=== PATIENT | female | born 1935 | race Caucasian/White ===

== ENCOUNTER 2016-12-04 09:32 | Emergency (ER) | payer OTHER, BC ==
[~2016-12-04] VITALS: Ht 157.5 cm; Wt 58.4 kg
[~2016-12-04 09:32] MED LIST: ASPI325T45 PO; ATEN-171 PO
[2016-12-04 09:37] VITALS: TEMP 36.8; Ht 157.5 cm; Wt 58.4 kg
[2016-12-04] MEDS ORDERED: PROMETHAZINE HCL INJ 25 MG in SODIUM CHLORIDE 0.9% 50ML 50 ML IV STA (10:05)
[2016-12-04] MEDS ORDERED: SODIUM CHLORIDE 0.9% 500ML 500 ML IV STA (10:05)
[2016-12-04] MEDS ORDERED: ACETAMINOPHEN 500 MG TAB PO STA (10:05)
--- NOTE | 2016-12-04 10:12 | EMERGENCY ROOM VISIT NOTE ---
History Report prepared by Kaylee: Nathaniel Casarez Under the Supervision of: Dr. Isidro Calvo M.D. First contact with patient: 09:52 Chief Complaint: HEADACHE Stated Complaint: EAR ACHE, SORE THROAT, HEADACHE, PAIN UP BACK NECK History of Present Illness The patient is a 81 year old female who presents to the Emergency Room with complaints of a constant headache for about a week. The patient states that it seems that the veins on side of her head are puffing up, the back of her neck hurts, she has sore throat and an earache. She additionally states that she has some tingling in her fingers. The patient states that she has not seen a neurologist recently, and she does not take any medications. The patient denies any nausea. Source of History: patient Onset: a week ago Position: head Timing: constant Associated Symptoms: + sorethroat, + neck pain, No nausea Note: associated symptoms: Earache Review of Systems See HPI for pertinent positives & negatives. A total of 10 systems reviewed and were otherwise negative. Past Medical & Surgical Medical Problems: (1) Hypertension Family History Cancer Social History Smoking Status: Never Smoker Marital Status: Occupation Status: retired Current/Historical Medications Scheduled Atenolol/Chlorthalidone (Tenoretic 50 Mg/25 Mg), 1 TAB PO DAILY Prednisone (Prednisone Tab), 0 PO DAILY Scheduled PRN Aspirin (Aspirin), 325 MG PO UD PRN for Pain or Fever Allergies Coded Allergies: No Known Allergies (Verified , 12/04/16) Physical Exam Vital Signs Date Time Temp Pulse Resp B/P (MAP) Pulse Ox O2 Delivery O2 Flow Rate FiO2 12/04/16 12:44 74 20 179/79 99 Room Air 12/04/16 12:07 72 12/04/16 11:27 79 20 179/79 100 Room Air 12/04/16 09:37 36.8 76 18 142/72 96 Room Air Physical Exam GENERAL: Patient is a healthy-appearing well-nourished female HEAD: Normocephalic atraumatic. No evidence of meningitis or encephalitis. EYES: Ocular movements intact pupils equal and react to light OROPHARYNX mucous membranes are moist no exudates present no erythema or edema present NECK: Supple no nuchal rigidity CHEST: Good equal expansion LUNGS: Clear and equal to auscultation CARDIAC: Normal S1 and S2 ABDOMEN: Soft nontender no guarding BACK: No CVA tenderness EXTREMITIES: No pain upon palpation normal muscle strength in all groups no clubbing cyanosis or edema NEURO: Patient is following commands and answering questions appropriately. Alert and oriented x3 Cranial Nerves 2-12 grossly intact Medical Decision & Procedures ER Provider Diagnostic Interpretation: Radiology results as stated below per my review and radiologist interpretation: HEAD WITHOUT CONTRAST (CT) CT DOSE: 741.55 mGycm HISTORY: Headache Pt c/o headache TECHNIQUE: Multiaxial CT images of the head were performed without the use of intravenous contrast. Comparison: None. Findings: The paranasal sinuses and mastoid air cells are clear. The calvarium and skull base are intact. The ventricles and sulci are within normal limits. There is no mass, hematoma, midline shift, or acute infarct. Impression: No acute intracranial abnormality. The above report was generated using voice recognition software. It may contain grammatical, syntax or spelling errors. Electronically signed by: Ezequiel Mora M.D. 12/04/2016 11:14 AM Dictated Date/Time: 12/04/2016 11:07 AM CHEST ONE VIEW PORTABLE CLINICAL HISTORY: Pt c/o DONG pain. Nausea. COMPARISON STUDY: No previous studies for comparison. FINDINGS: The bones soft tissues and hemidiaphragms are normal. The cardiomediastinal silhouette is normal. The lungs are clear. The pulmonary vasculature is normal. IMPRESSION: Negative chest. Electronically signed by: Ezequiel Mora M.D. 12/04/2016 10:22 AM Dictated Date/Time: 12/04/2016 10:21 AM Laboratory Results 12/04/16 10:41 Red Blood Count 4.26, Mean Corpuscular Volume 88.5, Mean Corpuscular Hemoglobin 29.3, Mean Corpuscular Hemoglobin Concent 33.2, Mean Platelet Volume 8.0, Neutrophils (%) (Auto) 66.6, Lymphocytes (%) (Auto) 19.3, Monocytes (%) (Auto) 12.1, Eosinophils (%) (Auto) 1.5, Basophils (%) (Auto) 0.1, Neutrophils # (Auto ) 5.21, Lymphocytes # (Auto) 1.51, Monocytes # (Auto) 0.95, Eosinophils # (Auto ) 0.12, Basophils # (Auto) 0.01 12/04/16 10:41 Test 12/04/16 09:55 12/04/16 10:41 12/04/16 11:30 Urine Color YELLOW Urine Appearance TURBID (CLEAR) Urine pH 8.0 (4.5-7.5) Urine Specific [place] 1.016 (1.000-1.030) Urine Protein NEG (NEG) Urine Glucose (UA) NEG (NEG) Urine Ketones NEG (NEG) Urine Occult Blood NEG (NEG) Urine Nitrite NEG (NEG) Urine Bilirubin NEG (NEG) Urine Urobilinogen NEG (NEG) Urine Leukocyte Esterase NEG (NEG) Urine WBC (Auto) 0 /hpf (0-5) Urine RBC (Auto) 0-4 /hpf (0-4) Urine Hyaline Casts (Auto) 1-5 /lpf (0-5) Urine Epithelial Cells (Auto) >30 /lpf (0-5) Urine Bacteria (Auto) NEG (NEG) White Blood Count 7.83 K/uL (4.8-10.8) Red Blood Count 4.26 M/uL (4.2-5.4) Hemoglobin 12.5 g/dL (12.0-16.0) Hematocrit 37.7 % (37-47) Mean Corpuscular Volume 88.5 fL (80-100) Mean Corpuscular Hemoglobin 29.3 pg (25-34) Mean Corpuscular Hemoglobin Concent 33.2 g/dl (32-36) Platelet Count 392 K/uL (130-400) Mean Platelet Volume 8.0 fL (7.4-10.4) Neutrophils (%) (Auto) 66.6 % Lymphocytes (%) (Auto) 19.3 % Monocytes (%) (Auto) 12.1 % Eosinophils (%) (Auto) 1.5 % Basophils (%) (Auto) 0.1 % Neutrophils # (Auto) 5.21 K/uL (1.4-6.5) Lymphocytes # (Auto) 1.51 K/uL (1.2-3.4) Monocytes # (Auto) 0.95 K/uL (0.11-0.59) Eosinophils # (Auto) 0.12 K/uL (0-0.5) Basophils # (Auto) 0.01 K/uL (0-0.2) RDW Standard Deviation 43.0 fL (36.4-46.3) RDW Coefficient of Variation 13.3 % (11.5-14.5) Immature Granulocyte % (Auto) 0.4 % Immature Granulocyte # (Auto) 0.03 K/uL (0.00-0.02) Erythrocyte Sedimentation Rate 51 mm/hr (0-21) Anion Gap 8.0 mmol/L (3-11) Est Creatinine Clear Calc Drug Dose 51.4 ml/min Estimated GFR () 95.3 Estimated GFR (Non- 82.2 BUN/Creatinine Ratio 16.2 (10-20) Calcium Level 9.1 mg/dl (8.5-10.1) Total Bilirubin 0.4 mg/dl (0.2-1) Direct Bilirubin < 0.1 mg/dl (0-0.2) Aspartate Amino Transf (AST/SGOT) 16 U/L (15-37) Alanine Aminotransferase (ALT/SGPT) 11 U/L (12-78) Alkaline Phosphatase 61 U/L (45-117) Total Creatine Kinase 40 U/L (26-192) Creatine Kinase MB < 0.5 ng/ml (0.5-3.6) Creatine Kinase MB Ratio (0-3.0) Troponin I < 0.015 ng/ml (0-0.045) C-Reactive Protein 6.27 mg/dl (0-0.29) Total Protein 7.5 gm/dl (6.4-8.2) Albumin 3.2 gm/dl (3.4-5.0) Lipase 99 U/L (73-393) Influenza Type A (RT-PCR) Neg for Influ A (NEG) Influenza Type A Antigen Neg for Influ A (NEG) Influenza Type B Antigen Neg for Influ B (NEG) Influenza Type B (RT-PCR) Neg for Influ B (NEG) Labs reviewed by ED physician. Medications Administered Medications (Trade) Dose Ordered Sig/Yulia Route Start Time Stop Time Status Last Admin Dose Admin Sodium Chloride 500 ml @ 999 mls/hr Q31M STAT IV 12/04/16 10:05 12/04/16 10:35 DC 12/04/16 10:41 999 MLS/HR Promethazine HCl 25 mg/Sodium Chloride 51 ml @ 204 mls/hr NOW STAT IV 12/04/16 10:05 12/04/16 10:19 DC 12/04/16 10:42 204 MLS/HR Acetaminophen (Tylenol Tab) 1,000 mg NOW STAT PO 12/04/16 10:05 12/04/16 10:08 DC 12/04/16 11:27 1,000 MG Methylprednisolone Sodium Succinate (Solu-Medrol IV) 60 mg NOW STAT IV 12/04/16 11:53 12/04/16 11:54 DC 12/04/16 12:06 60 MG ECG Indication: other (headache) Rate (beats per minute): 70 Rhythm: normal sinus Findings: no acute ischemic change, no ectopy ED Course 958: Past medical records reviewed. The patient was evaluated in room C10. A complete history and physical examination was performed. 1005: Tylenol Tab 1000mg PO, Promethazine HCl 25mg/ Sodium Chloride 51ml @ 204mls/hr IV, Sodium Chloride 500 ml @ 999 mls/hr 1153: Solu-Medrol IV 60mg IV 1157: Upon reexamination the patient is feeling better. I discussed results and treatment plan with the patient. She verbalizes agreement and understanding. The patient is ready for discharge. Medical Decision Differential diagnosis: Etiologies such as migraine headache, meningitis, sinusitis, CO exposure, ICH, SAH, infection, tumor, headache, sinus thrombosis, arterial dissection, as well as others were entertained. Blood Pressure Screening: Patient was found to have an elevated blood pressure and was referred to their primary care doctor for recheck and further treatment Medication Reconciliation: I attest that I have personally reviewed the patient' s current medication list This is an 81-year-old female who presents emergency department complaining of headache. The patient is tender bilaterally to the orthodoxy area. She says elevations in her ESR as well as her CRP. Based on these findings I did give the patient a steroid shot of Solu-Medrol. Other than that she does not have an elevation in her white blood count cell count and a CAT scan of her head is normal. She has no evidence of meningitis encephalitis on examination. I will trial the patient on a by mouth steroid taper and stressed the need for follow- up with neurology. Patient was in agreement with the treatment plan. Impression Primary Impression: Headache Scribe Attestation The scribe's documentation has been prepared under my direction and personally reviewed by me in its entirety. I confirm that the note above accurately reflects all work, treatment, procedures, and medical decision making performed by me. Departure Information Dispostion Home / Self-Care Prescriptions Prednisone (Prednisone Tab) 20 Mg Tab 0 PO DAILY, #7 TAB 2 TABS DAILY FOR 2 DAYS, THEN 1 TAB DAILY FOR 2 DAYS, THEN 1/2 TAB DAILY FOR 2 DAYS. Prov: Isidro Calvo MD 12/04/16 Referrals No Doctor, Assigned (PCP) Forms HOME CARE DOCUMENTATION FORM, IMPORTANT VISIT INFORMATION, School Instructions, Work Instructions Patient Instructions Headache Pain, Hypertension Dc, My [facility] Additional Instructions Follow up with Dr Rodrigues's office You were found to have an elevated blood pressure today (>120 sytolic or >90 diastolic). Per medicare guidelines, you need to follow up with this blood pressure screening with your Primary Care Physician (PCP). For a new PCP call [phone]. You have been examined and treated today on an emergency basis only. This is not a substitute for, or an effort to provide, complete comprehensive medical care. It is impossible to recognize and treat all injuries or illnesses in a single emergency department visit. It is therefore important that you follow up closely with Dr Sam. Call as soon as possible for an appointment. Thank you for your time and consideration. I look forward to speaking with you again soon. Please don't hesitate to call us if you have any questions. Problem Qualifiers Primary Impression: Headache Headache type: unspecified Headache chronicity pattern: unspecified pattern Intractability: not intractable Qualified Codes: R51 - Headache
--- NOTE | 2016-12-04 10:23 | DIAGNOSTIC IMAGING REPORT ---
CHEST ONE VIEW PORTABLE CLINICAL HISTORY: Pt c/o DONG pain. Nausea. COMPARISON STUDY: No previous studies for comparison. FINDINGS: The bones soft tissues and hemidiaphragms are normal. The cardiomediastinal silhouette is normal. The lungs are clear. The pulmonary vasculature is normal. IMPRESSION: Negative chest. Electronically signed by: Ezequiel Mora M.D. 12/04/2016 10:22 AM Dictated Date/Time: 12/04/2016 10:21 AM
[2016-12-04 11:00] LABS: BASO % 0.1 %; BASO ABS # 0.01 K/uL (0-0.2); COMPLETE YES; EOS % 1.5 %; HEMATOCRIT 37.7 % (37-47); IG% 0.4 %; LYMPH % 19.3 %; LYMPH ABS # 1.51 K/uL (1.2-3.4); MEAN CELL VOLUME 88.5 fL (80-100); MEAN CORPUSCULAR HEMOGLOBIN 29.3 pg (25-34); MEAN CORPUSCULAR HGB CONC 33.2 g/dl (32-36); MONO % 12.1 %; NEUT % 66.6 %; PLATELET COUNT 392 K/uL (130-400); RED BLOOD COUNT 4.26 M/uL (4.2-5.4); WHITE BLOOD COUNT 7.83 K/uL (4.8-10.8)
--- NOTE | 2016-12-04 11:15 | DIAGNOSTIC IMAGING REPORT ---
HEAD WITHOUT CONTRAST (CT) CT DOSE: 741.55 mGycm HISTORY: Headache Pt c/o headache TECHNIQUE: Multiaxial CT images of the head were performed without the use of intravenous contrast. Comparison: None. Findings: The paranasal sinuses and mastoid air cells are clear. The calvarium and skull base are intact. The ventricles and sulci are within normal limits. There is no mass, hematoma, midline shift, or acute infarct. Impression: No acute intracranial abnormality. The above report was generated using voice recognition software. It may contain grammatical, syntax or spelling errors. Electronically signed by: Ezequiel Mora M.D. 12/04/2016 11:14 AM Dictated Date/Time: 12/04/2016 11:07 AM
[2016-12-04 11:19] LABS: ALT/SGPT 11 U/L (12-78); BLOOD UREA NITROGEN 11 mg/dl (7-18); BUN/CREATININE RATIO 16.2 (10-20); C-REACTIVE PROTEIN 6.27 mg/dl (0-0.29); CALCIUM 9.1 mg/dl (8.5-10.1); CARBON DIOXIDE 28 mmol/L (21-32); CHLORIDE 97 mmol/L (98-107); CREATININE 0.69 mg/dl (0.60-1.20); GLUCOSE 96 mg/dl (70-99); POTASSIUM 3.7 mmol/L (3.5-5.1); SODIUM 133 mmol/L (136-145)
[2016-12-04 11:22] LABS: ALKALINE PHOSPHATASE 61 U/L (45-117); AST/SGOT 16 U/L (15-37)
[2016-12-04] MEDS ORDERED: METHYLPREDNISOLONE 125 MG VIAL IV STA (11:53)
[2016-12-04] MEDS ORDERED: PRED20TA2 PO (11:58)
[2016-12-04 12:34] LABS: URINE APPEARANCE TURBID (CLEAR); URINE BILIRUBIN NEG (NEG); URINE COLOR YELLOW; URINE EPITHELIAL CELL AUTO >30 /lpf (0-5); URINE NITRITE NEG (NEG); URINE SPECIFIC GRAVITY 1.016 (1.000-1.030); UROBILINOGEN NEG (NEG)
[2016-12-04 12:36] LABS: MANUAL MICROSCOPIC REQUIRED? NO; REVIEW REQ? NO
[2016-12-04 12:44] VITALS: BP 179/79; PULSE 74; O2SAT 99
[2016-12-04 14:24] LABS: INFLUENZA A PCR Neg for Influ A (NEG); INFLUENZA B PCR Neg for Influ B (NEG)
[2016-12-12] MEDS ORDERED: TURM1CAP PO (08:51)
[2016-12-12] MEDS ORDERED: ASPI-232 PO (08:51)
[2016-12-12] MEDS ORDERED: ZNTT/150 PO (08:51)
[2016-12-12] MEDS ORDERED: PRED20TA2 PO (08:51)
[2016-12-12] MEDS ORDERED: ACET1TAB84 PO (08:51)
[2016-12-12] MEDS ORDERED: CYAN10004 PO (08:51)
[2016-12-12] MEDS ORDERED: ACET-1256 PO (08:51)
== END 2016-12-04 13:05 | disposition home or self-care (01) ==
LOC: C.EDB 09:34 → C.EDC 13:05
DX: R51 Headache (principal); I10 Essential (primary) hypertension; Z79.899 Other long term (current) drug therapy; Z80.9 Family history of malignant neoplasm, unspecified

== ENCOUNTER → 2016-12-15 | Outpatient (CLI) | payer OTHER, BC ==
[~2016-12-15] MED LIST changes: +ACET-1256 PO; +ACET1TAB84 PO; +ASPI-232 PO; -ASPI325T45 PO; +CYAN10004 PO; +HYDR-5688 PO; +PRED20TA2 PO; +TURM1CAP PO; +ZNTT/150 PO
== END | disposition home or self-care (01) ==
LOC: C.LAB1850 08:50
PROVIDERS: ATTEND Internal Medicine Rheumatology
DX: R70.0 Elevated erythrocyte sedimentation rate (principal)

== ENCOUNTER 2016-12-16 07:22 | Day surgery (SDC) | payer OTHER, BC ==
[2016-12-12 08:55] VITALS: BMI 23.0
[~2016-12-16] VITALS: Ht 157.5 cm; Wt 56.8 kg
[~2016-12-16 07:22] MED LIST changes: -HYDR-5688 PO; +LACTATED RINGER'S 1000ML 1,000 ML IV SCH
[2016-12-16 07:50] VITALS: BP 174/85; PULSE 61; TEMP 36.9; O2SAT 99; Ht 157.5 cm; Wt 56.8 kg
[2016-12-16] MEDS ORDERED: FLUMAZENIL 0.1 MG/1 ML 10 ML VIAL IV PRN (09:00)
[2016-12-16] MEDS ORDERED: HYDROmorphone INJ 2 MG/ML SYR/VIAL IV PRN (09:00)
[2016-12-16] MEDS ORDERED: ATROPINE SULFATE 0.1 MG/ML 5ML SYR IV PRN (09:00)
[2016-12-16] MEDS ORDERED: LABETALOL HCL IV 5 MG/ML 20ML IV PRN (09:00)
[2016-12-16] MEDS ORDERED: ONDANSETRON INJ 2 MG/ML 2 ML VIAL IV PRN ×2 (09:00→11:00)
[2016-12-16] MEDS ORDERED: NALOXONE HCL 0.4 MG/1 ML VIAL/CARP IV PRN (09:00)
[2016-12-16] MEDS ORDERED: EpHEDrine SULFATE INJ 50 MG/ML AMP IV PRN (09:00)
[2016-12-16] MEDS ORDERED: MEPERIDINE HCL 25 MG/ML CARP IV PRN (09:00)
[2016-12-16] MEDS ORDERED: FENTANYL CITRATE INJ 50 MCG/1 ML 2 ML VIAL IV PRN (09:00)
[2016-12-16] MEDS ORDERED: PHENYLEPHRINE 100MCG/ML 5ML SYR IV PRN (09:00)
[2016-12-16] MEDS ORDERED: LIDOCAINE/EPINEPHRINE 1% 20 ML VIAL ONE (09:53)
[2016-12-16] MEDS ORDERED: BACITRACIN OINT 15 GM TUBE ONE (09:53)
[2016-12-16] MEDS ORDERED: LIDOCAINE HCL 2% 2 ML VIAL (20MG/ML) ONE (09:55)
[2016-12-16] MEDS ORDERED: MIDAZOLAM HCL 1 MG/ML 2ML VIAL ONE (09:55)
[2016-12-16] MEDS ORDERED: FENTANYL CITRATE INJ 50 MCG/1 ML 2 ML VIAL ONE (09:55)
[2016-12-16] MEDS ORDERED: PROPOFOL IV EMULSION 10 MG/ML 20 ML VIAL IV ONE (09:55)
--- NOTE | 2016-12-16 09:57 | History & Physical Bridge Note ---
H&P Re-Evaluation Bridge Note: I have examined the patient, reviewed the History & Physical and in the interval since the performance of the History & Physical I have noted the following changes of clinical significance: No changes noted pt marked all questions answered
[2016-12-16] MEDS ORDERED: HYDR-5688 PO (10:34)
--- NOTE | 2016-12-16 10:36 | Discharge Instructions ---
Discharge Instructions Date of Service Dec 16, 2016. Visit Reason for Visit: Headache Discharge Discharge Diagnosis / Problem: temporal artery biopsies Discharge Goals Goal(s): Improve disease control Activity Recommendations Activity Limitations: as noted below Shower/Bathe: tomorrow Driving or Machine Use: if not mtaking [place] Anesthesia . Post Anesthesia Instructions: If you have had General Anesthesia or IV Sedation: * Do not drive today. * Resume driving when surgeon permits. * Do not make important decisions or sign legal documents today. * Call surgeon for: 1. Temperature elevations greater than 101 degrees F. 2. Uncontrollable pain. 3. Excessive bleeding. 4. Persistent nausea and vomiting. 5. Medication intolerance (nausea, vomiting or rash). * For nausea and vomiting use only clear liquids such as: tea, soda, bouillon until nausea subsides, then gradually increase diet as tolerated. * If you have any concerns or questions, call your surgeon's office. If physician is unavailable and it is an emergency, call 911 or go to the nearest emergency room. . Instructions / Follow-Up Instructions / Follow-Up Dr. Calderon in 1 week, call [phone] if you need to schedule or have any questions Diet Recommendations Recommended Home Diet: no limitations Pending Studies Studies pending at discharge: yes List of pending studies: pathology Medical Emergencies . Who to Call and When: Medical Emergencies: If at any time you feel your situation is an emergency, please call 911 immediately. . Non-Emergent Contact Non-Emergency issues call your: Surgeon Call Non-Emergent contact if: you have a fever, temperature is above 101.5, your pain is not controlled, you have any medication questions . . "Provider Documentation" section prepared by Kwaku Meade. . [place] Drug Monitoring Program Search Results: no issues identified
[2016-12-16] MEDS ORDERED: LACTATED RINGER'S 1000ML 1,000 ML IV SCH (10:58)
[2016-12-16] MEDS ORDERED: MoRPHine SULFATE 2 MG/ML CARP IV PRN (11:00)
[2016-12-16] MEDS ORDERED: HYDROCODONE/ACETAMOPHEN 5/325MG TAB PO PRN (11:00)
--- NOTE | 2016-12-16 11:13 | [facility] Operative Report ---
Operative Report Operative Date Dec 16, 2016. Pre-Operative Diagnosis rule out temporal arteritis Post-Operative Diagnosis rule out temporal arteritis Procedure(s) Performed Bilateral Temporal Artery Biopsy Surgeon Dr. Jhon Calderon Hairspring Vibrator Surgeon(s) None Estimated Blood Loss 1ML Findings as preop Specimens A. Right Temporal Artery B. Left Temporal Artery Anesthesia 1%xyl(4cc0 and iv sedation Indications r/o temp arteritis Description of Procedure or summary dictated confirmation number [id number] I attest to the content of the Intraoperative Record and any orders documented therein. Any exceptions are noted below.
--- NOTE | 2016-12-16 11:37 | Anesthesiology Progress Note ---
Anesthesia Post Op Note Date & Time Dec 16, 2016 at 11:37 Vital Signs Pain Intensity: 0 Vital Signs Past 12 Hours Date Time Temp Pulse Resp B/P (MAP) Pulse Ox O2 Delivery O2 Flow Rate FiO2 12/16/16 11:29 36.6 62 20 149/59 95 Room Air 12/16/16 11:20 62 20 155/68 95 Room Air 12/16/16 11:10 57 16 152/66 95 Room Air 12/16/16 11:01 36 66 18 161/76 95 Room Air 12/16/16 07:50 36.9 61 18 174/85 (114) 99 Room Air Notes Mental Status: alert / awake / arousable, participated in evaluation Pt Amnestic to Procedure: Yes Nausea / Vomiting: adequately controlled Pain: adequately controlled Airway Patency, RR, SpO2: stable & adequate BP & HR: stable & adequate Hydration State: stable & adequate Anesthetic Complications: no major complications apparent
--- NOTE | 2016-12-16 11:39 | OPERATIVE REPORT ---
DATE OF OPERATION: 12/16/2016 PREOPERATIVE DIAGNOSIS: Rule out temporal arteritis. POSTOPERATIVE DIAGNOSIS: Same. PROCEDURE: Bilateral temporal artery biopsy. SURGEON: Dr. Calderon. BEADING MACHINE OPERATOR: Katy. OPERATION AND FINDINGS: SUMMARY: The patient was brought into the operating room theater. The right anterior to the ear was prepped with Betadine solution and properly draped after we had palpated the artery and marked it with a pen. Some IV sedation was given. I used 1% Xylocaine without epinephrine, a total of about 1.5-2 mL to infiltrate the skin and subcutaneous tissue. An incision was made approximately 3/4 of an inch long, parallel anterior to the area, deepened through subcutaneous tissue until we were able to identify the artery which dissected out proximally and distally for about a cm or so using a hemostat to divide the artery easily distally. We took a segment out of approximately 1 cm. I marked it as the right temporal artery biopsy. The resected area of the artery was then oversewn over a 4-0 Monocryl suture ligature on both ends. The area appeared satisfactory for hemostasis, closed with interrupted 4-0 Monocryl. Steri-Strips will be applied after we completed the left side. At this point we reprepped and draped the patient, turned her head to the right. Again, similarly placed a prep anterior to the left ear. We placed a cotton swab on the ear just as we had done on the other side, some local anesthetic was used to infiltrate anteriorly. An incision was made approximately 3/4 of an inch, deepened through subcutaneous tissue, again experiencing and identifying a segment of the artery which we ligated proximally and distally with 4-0 Vicryl suture after resecting approximately a centimeter of the artery and sent it separately. The wound was then 4-0 Monocryl. Steri-Strips were applied over both ends. Dressing was applied. The procedure was tolerated well by the patient. Estimated blood loss approximately 1 mL. The patient was taken to recovery room in good condition. I attest to the content of the Intraoperative Record and any orders documented therein. Any exception s are noted below.
[2016-12-16 11:40] VITALS: BP 166/70; PULSE 60; TEMP 36.7; O2SAT 96
[2016-12-16 12:15] VITALS: BP 161/71; PULSE 64; TEMP 36.7; O2SAT 98
== END 2016-12-16 12:45 | disposition home or self-care (01) ==
LOC: C.ACU 07:22
PROVIDERS: ATTEND Surgery
DX: M31.6 Other giant cell arteritis (principal); I35.0 Nonrheumatic aortic (valve) stenosis; I10 Essential (primary) hypertension; E78.5 Hyperlipidemia, unspecified; K21.9 Gastro-esophageal reflux disease without esophagitis; L90.0 Lichen sclerosus et atrophicus; Z79.899 Other long term (current) drug therapy; Z79.82 Long term (current) use of aspirin

== ENCOUNTER → 2017-01-20 | Outpatient (CLI) | payer OTHER, BC ==
[~2017-01-20] MED LIST changes: -ACET-1256 PO; -ACET1TAB84 PO; +HYDR-5688 PO; -LACTATED RINGER'S 1000ML 1,000 ML IV SCH; -TURM1CAP PO
== END | disposition home or self-care (01) ==
LOC: C.MAMM 13:12
PROVIDERS: ATTEND Internal Medicine Rheumatology
DX: M31.6 Other giant cell arteritis (principal); T38.0X1A Poisoning by glucocorticoids and synthetic analogues, accidental (unintentional), initial encounter; Z79.52 Long term (current) use of systemic steroids; M81.0 Age-related osteoporosis without current pathological fracture

== ENCOUNTER → 2017-02-02 | Outpatient (CLI) | payer OTHER, BC | END | disposition home or self-care (01) | LOC: C.LAB1850 09:46 | PROVIDERS: ATTEND Internal Medicine Rheumatology | DX: Z51.81 Encounter for therapeutic drug level monitoring (principal); M31.6 Other giant cell arteritis; T38.0X1A Poisoning by glucocorticoids and synthetic analogues, accidental (unintentional), initial encounter; E55.9 Vitamin D deficiency, unspecified; Z79.52 Long term (current) use of systemic steroids ==

== ENCOUNTER → 2017-03-09 | Outpatient (CLI) | payer OTHER, BC | LOC: C.LAB1850 13:24 | PROVIDERS: ATTEND Internal Medicine Rheumatology | DX: M31.6 Other giant cell arteritis (principal); M81.8 Other osteoporosis without current pathological fracture; S32.9XXA Fracture of unspecified parts of lumbosacral spine and pelvis, initial encounter for closed fracture; X58.XXXA Exposure to other specified factors, initial encounter; Z79.52 Long term (current) use of systemic steroids ==

== ENCOUNTER → 2017-04-13 | Outpatient (CLI) | payer OTHER, BC | END | disposition home or self-care (01) | LOC: C.LAB1850 09:48 | PROVIDERS: ATTEND Internal Medicine Rheumatology | DX: E55.9 Vitamin D deficiency, unspecified (principal) ==

== ENCOUNTER → 2017-05-11 | Outpatient (CLI) | payer OTHER, BC | END | disposition home or self-care (01) | LOC: C.LAB1850 09:13 | PROVIDERS: ATTEND Internal Medicine Rheumatology | DX: M81.8 Other osteoporosis without current pathological fracture (principal); Z79.52 Long term (current) use of systemic steroids; M31.6 Other giant cell arteritis; E55.9 Vitamin D deficiency, unspecified ==

== ENCOUNTER → 2017-06-29 | Outpatient (CLI) | payer OTHER, BC ==
[~2017-06-29] MED LIST changes: -HYDR-5688 PO
== END | disposition home or self-care (01) ==
LOC: C.LAB1850 10:30
PROVIDERS: ATTEND Internal Medicine Rheumatology
DX: M81.8 Other osteoporosis without current pathological fracture (principal); M31.6 Other giant cell arteritis; Z79.52 Long term (current) use of systemic steroids

== ENCOUNTER → 2017-08-10 | Outpatient (CLI) | payer OTHER, BC ==
[~2017-08-10] MED LIST changes: +RANI150T85 PO; -ZNTT/150 PO
== END | disposition home or self-care (01) ==
LOC: C.LAB1850 09:19
PROVIDERS: ATTEND Internal Medicine Pulmonary Disease
DX: M81.8 Other osteoporosis without current pathological fracture (principal); Z79.52 Long term (current) use of systemic steroids; M31.6 Other giant cell arteritis

== ENCOUNTER → 2017-09-08 | Outpatient (CLI) | payer OTHER, BC ==
[2017-09-08 12:27] LABS: BASO % 0.2 %; BASO ABS # 0.02 K/uL (0-0.2); EOS % 0.8 %; EOS ABS # 0.08 K/uL (0-0.5); HEMATOCRIT 43.8 % (37-47); HEMOGLOBIN 14.9 g/dL (12.0-16.0); IG# 0.02 K/uL (0.00-0.02); LYMPH % 14.6 %; LYMPH ABS # 1.49 K/uL (1.2-3.4); MEAN CELL VOLUME 94.6 fL (80-100); MEAN CORPUSCULAR HEMOGLOBIN 32.2 pg (25-34); MEAN PLATELET VOLUME 9.2 fL (7.4-10.4); MONO % 4.3 %; MONO ABS # 0.44 K/uL (0.11-0.59); NEUT % 79.9 %; NEUT ABS # 8.17 K/uL (1.4-6.5); PLATELET COUNT 298 K/uL (130-400); RED CELL DISTRIBUTION WIDTH CV 13.3 % (11.5-14.5); RED CELL DISTRIBUTION WIDTH SD 45.7 fL (36.4-46.3); WHITE BLOOD COUNT 10.22 K/uL (4.8-10.8)
[2017-09-08 13:24] LABS: ALBUMIN 3.8 gm/dl (3.4-5.0); ALT/SGPT 23 U/L (12-78); AST/SGOT 23 U/L (15-37); BLOOD UREA NITROGEN 16 mg/dl (7-18); CALCIUM 9.5 mg/dl (8.5-10.1); CARBON DIOXIDE 30 mmol/L (21-32); CREATININE 1.26 mg/dl (0.60-1.20); GLUCOSE 83 mg/dl (70-99); POTASSIUM 3.4 mmol/L (3.5-5.1); SODIUM 137 mmol/L (136-145)
[2017-09-08 13:35] LABS: ALKALINE PHOSPHATASE 47 U/L (45-117); TOTAL PROTEIN 7.5 gm/dl (6.4-8.2)
== END | disposition home or self-care (01) ==
LOC: C.LAB1850 09:55
PROVIDERS: ATTEND Internal Medicine Rheumatology
DX: I10 Essential (primary) hypertension (principal); I35.0 Nonrheumatic aortic (valve) stenosis; M80.00XA Age-related osteoporosis with current pathological fracture, unspecified site, initial encounter for fracture; X58.XXXA Exposure to other specified factors, initial encounter; Z79.52 Long term (current) use of systemic steroids; M31.6 Other giant cell arteritis

== ENCOUNTER → 2017-10-13 | Outpatient (CLI) | payer OTHER, BC | END | disposition home or self-care (01) | LOC: C.LAB1850 10:13 | PROVIDERS: ATTEND Internal Medicine Rheumatology | DX: Z51.81 Encounter for therapeutic drug level monitoring (principal); E55.9 Vitamin D deficiency, unspecified; M81.8 Other osteoporosis without current pathological fracture; Z79.52 Long term (current) use of systemic steroids; M31.6 Other giant cell arteritis ==

== ENCOUNTER → 2017-12-10 | Outpatient (CLI) | payer OTHER, BC | END | disposition home or self-care (01) | LOC: C.LAB1850 09:45 | PROVIDERS: ATTEND Internal Medicine Rheumatology | DX: N20.0 Calculus of kidney (principal); M80.00XA Age-related osteoporosis with current pathological fracture, unspecified site, initial encounter for fracture; M31.6 Other giant cell arteritis; M25.511 Pain in right shoulder ==

== ENCOUNTER 2021-05-26 07:56 | Observation (INO) ==
[2021-05-26] MEDS ORDERED: ASPIRIN CHEW 324 MG PO STA (08:20)
[2021-05-26 08:44] LABS: Basophils # (auto) 0.02 K/uL (0-0.2); Basophils % (auto) 0.4 %; Eosinophils # (auto) 0.12 K/uL (0-0.5); Eosinophils % (auto) 2.2 %; Hematocrit (blood only) 42.7 % (37-47); Hemoglobin 14.8 g/dL (12.0-16.0); Immature Granulocytes # (auto) 0.01 K/uL (0.00-0.02); Immature Granulocytes % (auto) 0.2 %; Lymphocytes # (auto) 0.92 K/uL (1.2-3.4); Lymphocytes % (auto) 16.5 %; Mean Corpuscular Hemoglobin 31.3 pg (25-34); Mean Corpuscular Hgb Conc 34.7 g/dL (32-36); Mean Corpuscular Volume 90.3 fL (80-100); Mean Platelet Volume 9.2 fL (7.4-10.4); Monocytes # (auto) 0.76 K/uL (0.11-0.59); Monocytes % (auto) 13.6 %; Neutrophils # (auto) 3.74 K/uL (1.4-6.5); Neutrophils % (auto) 67.1 %; Platelet Count 172 K/uL (130-400); RDW Coefficient of Variation 12.9 % (11.5-14.5); RDW Standard Deviation 42.7 fL (36.4-46.3); Red Blood Count 4.73 M/uL (4.2-5.4); White Blood Count 5.57 K/uL (4.8-10.8)
--- NOTE | 2021-05-26 08:52 | XRay Report ---
SINGLE VIEW CHEST CLINICAL HISTORY: Atypical chest pain. FINDINGS: An AP, portable, upright chest radiograph is compared to study dated 12/04/2016. The cardiom ediastinal silhouette is unremarkable noting atherosclerotic calcification of the thoracic aorta. The re is evidence of previous cardiac valve surgery. There is mild bibasilar scarring/atelectasis. The l ungs and pleural spaces are otherwise clear. No pneumothorax is seen. The skeletal structures are ost eopenic. The bony thorax is grossly intact. Advanced arthritic change is seen in the right shoulder. IMPRESSION: No active disease in the chest. ACT 112: Negative or not required by law. Electronically signed by: Wilfredo Livingston M.D. 05/26/2021 8:51 AM
[2021-05-26 08:54] LABS: Partial Thromboplastin Ratio 1.2; Prothrombin Time 10.4 Seconds (9.0-12.0)
[2021-05-26 08:58] LABS: Alanine Aminotransferase 14 (12-78); Albumin Level 3.4 gm/dl (3.4-5.0); Aspartate Aminotransferase 23 U/L (15-37); BUN Creatinine Ratio 19.3 (10-20); Blood Urea Nitrogen 15 mg/dl (7-18); Calcium 9.1 mg/dl (8.5-10.1); Carbon Dioxide 30 mmol/L (21-32); Chloride 88 mmol/L (98-107); Creatinine Clr Calc Pharmacy 41.7 ml/min; Est GFR (African American) 80.3 ml/min; Est GFR (Non-African American) 69.3 ml/min; Glucose 104 mg/dl (70-99); Lipase 75 U/L (73-393); Potassium 3.2 mmol/L (3.5-5.1); Sodium 126 mmol/L (136-145)
--- NOTE | 2021-05-26 08:59 | Emergency Department Note ---
Impression & Plan Chest pain, Acute hyponatremia ED Provider Note NAME: LISETTE PERRY AGE: 86 SEX: F : 1935 ARRIVES VIA: Walk-In INFORMANT: Patient, ED PROVIDER(S): Mj Blandon DO CHIEF COMPLAINT: Chest pain HPI: The patient is an 86-year-old female who presented to the emergency department for an evaluation of chest pain. The patient describes anterior chest pain that goes to her back as well as her shoulders. She does have a hist ory of aortic valve replacement in the past. She states that this was only 3 years ago. She does not remember having a heart catheterization at that time but states that she does not think she has any cardiac stents. She denies having any abdominal pain. She states the pain goes into her left arm but then she also feels tightness in her left leg. She denies having any headache or neck pain. She states that the symptoms have been ongoing for the last few days. The patient did not see her primary care physician for the symptoms. The patient has not had any recent trauma. She denies having any fever or cough. She has been vaccinated against COVID-19. ROS: See above HPI for pertinent positives & negatives. A total of 10 systems reviewed and were otherwise negative. PAST MEDICAL HISTORY: See Below PAST SURGICAL HISTORY: See Below FAMILY HISTORY: See Below SOCIAL HISTORY: See Below HOME MEDICATIONS: See Below ALLERGIES: See Below VITALS: See Below PHYSICAL EXAMINATION: GENERAL: Patient is awake alert in no acute distress patient is resting comfortably and showing no signs of anxiety EYES: The conjunctivae are clear. The pupils are round and reactive. EARS, NOSE, MOUTH AND THROAT: The nose is without any evidence of any deformity. NECK: The neck is nontender and supple. RESPIRATORY: Normal respiratory effort is noted there is no evidence of wheezing rhonchi or rales CARDIOVASCULAR: Regular rate and rhythm noted there no murmurs rubs or gallops normal S1 normal S2. GASTROINTESTINAL: The abdomen is soft. Abdomen is nontender. MUSCULOSKELETAL/EXTREMITIES: There is no evidence of gross deformity full range of motion is noted in the hips and shoulders. SKIN: There is no significant pedal edema. Pulses are symmetric in both wrist. NEUROLOGIC: Patient is awake alert and oriented x3. MEDICAL DECISION MAKING: The patient is an 86-year-old female who presented to emergency department for an evaluation of chest pain. The patient describes anterior chest pain with radiation. I discussed the patient's laboratory and radiographic studies with her. I also discussed the limitations of the emergency department work-up for chest pain with her. Ultimately I did discuss her case with the on-call [facility] hospitalist group. They have agreed to evaluate the patient in the emergency department for further management and disposition. Triage Nursing notes reviewed. Prior medical records reviewed Vital Signs: reviewed and remarkable for elevated blood pressure. Differential diagnosis: Cardiac ischemia, aortic dissection, pulmonary embolism, pneumothorax, pneumonia, pericarditis, myocarditis, esophageal rupture, GERD, cholecystitis, pancreatitis, musculoskeletal, as well as other pathologies. ER treatment provided: See below Diagnostics interpreted by me: ECG: EKG was obtained in the emergency department. My interpretation is normal sinus rhythm at 84 bpm. There was no ectopy. There was no acute ST segment abnormalities noted. LVH was noted by voltage criteria. This was compared to a tracing from December 042016. No changes were noted. Cardiac Monitoring: An order was placed for continuous cardiac monitoring. The monitor shows a rate of 72 bpm with sinus rhythm. Laboratory studies: As stated above and show below. Imaging studies: See below Consultation(s): I discussed this case with Farzad who is on for the [facility] hospitalist group. They will evaluate the patient in the emergency department. Past Med/Surg History Medical History GERD (gastroesophageal reflux disease) Hiatal hernia Hx of fracture of pelvis 1 YR AGO Hypertension Personal history of kidney stones Rotator cuff tear right (november 2017) TA (temporal arteritis) Surgical History H/O aortic valve replacement [place] 23 millimeter, December 22, 2018. [facility]. TAVR History of cataract surgery LEFT Hx of colonoscopy Hx of lithotripsy Family History Family/Other Coronary heart disease Father Hypertension Father Cancer Brother Cancer Social History Smoking Status: Never smoker Second Hand Exposure: No; Hx Alcohol Use: No Hx Substance Use: No Preferred Language: Sami Communication Ability: Effective Director Of Fundraising Required: No Beliefs That Will Affect Care: None Current Living Situation: Alone Feels Safe at Home: Yes Assistive Devices: Glasses Allergies Allergies Allergy/AdvReac Type Severity Reaction Status Date / Time No Known Drug Allergies Allergy Verified 05/26/21 08:59 JEWELRY AdvReac Unknown "BREAK Uncoded 05/26/21 08:59 OUT" - SEE NOTE BELOW Home Meds Home Medications Medication Instructions Recorded Confirmed aspirin 81 mg chewable tablet 81 mg PO QAM 11/08/18 05/26/21 famotidine 20 mg tablet 20 mg PO QAM 07/19/20 05/26/21 chlorthalidone 25 mg tablet 25 mg PO QAM 05/26/21 05/26/21 Previous Rx's Medication Instructions Recorded amoxicillin 500 mg tablet 500 mg PO .COMPLEX #4 tab 08/01/19 Results & Data (ED) Vital Signs Vital Signs - 24 hr 05/26/21 07:59 05/26/21 08:20 05/26/21 09:00 Temperature 37 C Temperature Source Temporal Artery Scan Pulse Rate 91 H 70 Pulse Rate [Radial] 85 73 Pulse Rate from SpO2 Sensor Pulse Rhythm Regular Pulse Rhythm [Radial] Regular Regular Pulse Strength [Radial] Normal Normal Respiratory Rate 18 20 22 Respiratory Effort / Characteristics Non-Labored Non-Labored Non-Labored Respiratory Depth Normal Normal Normal Respiratory Pattern Regular Regular Blood Pressure 132/82 Blood Pressure [Left Arm] 180/81 H 139/65 Blood Pressure Mean 98 Blood Pressure Mean [Left Arm] 114 89 Blood Pressure Position [Left Arm] Lying Lying Pulse Oximetry 97 98 98 Oxygen Delivery Method Room Air Room Air Room Air Sepsis Recent Fever Within 48 Hours No Sepsis New/Unexplained Change in Mental Status No Sepsis Action Taken by Nursing No Action Required 05/26/21 09:30 05/26/21 10:30 05/26/21 11:00 Temperature Temperature Source Pulse Rate 72 Pulse Rate [Radial] 70 69 Pulse Rate from SpO2 Sensor 73 Pulse Rhythm Pulse Rhythm [Radial] Regular Pulse Strength [Radial] Normal Respiratory Rate 18 17 20 Respiratory Effort / Characteristics Non-Labored Respiratory Depth Normal Respiratory Pattern Blood Pressure 188/96 H Blood Pressure [Left Arm] 170/81 H 172/73 H Blood Pressure Mean 126 Blood Pressure Mean [Left Arm] 110 106 Blood Pressure Position [Left Arm] Lying Pulse Oximetry 99 97 97 Oxygen Delivery Method Room Air Room Air Room Air Sepsis Recent Fever Within 48 Hours Sepsis New/Unexplained Change in Mental Status Sepsis Action Taken by Nursing 05/26/21 11:35 05/26/21 12:00 Temperature Temperature Source Pulse Rate Pulse Rate [Radial] 74 72 Pulse Rate from SpO2 Sensor Pulse Rhythm Pulse Rhythm [Radial] Pulse Strength [Radial] Respiratory Rate 22 20 Respiratory Effort / Characteristics Non-Labored Respiratory Depth Normal Respiratory Pattern Regular Blood Pressure Blood Pressure [Left Arm] 173/81 H 171/83 H Blood Pressure Mean Blood Pressure Mean [Left Arm] 111 112 Blood Pressure Position [Left Arm] Lying Lying Pulse Oximetry 99 98 Oxygen Delivery Method Room Air Room Air Sepsis Recent Fever Within 48 Hours Sepsis New/Unexplained Change in Mental Status Sepsis Action Taken by Retirement Medications Current Medication List: was personally reviewed by me Laboratory Data Attestation: I reviewed the patient's lab results. Result diagrams: 05/26/21 08:18 05/26/21 08:18 Lab Results 05/26/21 05/26/21 05/26/21 Range/Units 08:18 08:18 08:18 WBC 5.57 (4.8-10.8) K/uL RBC 4.73 (4.2-5.4) M/uL Hgb 14.8 (12.0-16.0) g/dL Hct 42.7 (37-47) % MCV 90.3 (80-100) fL MCH 31.3 (25-34) pg MCHC 34.7 (32-36) g/dL RDW Std Deviation 42.7 (36.4-46.3) fL RDW Coeff of Dickson 12.9 (11.5-14.5) % Plt Count 172 (130-400) K/uL MPV 9.2 (7.4-10.4) fL Immature Gran % (Auto) 0.2 % Neut % (Auto) 67.1 % Lymph % (Auto) 16.5 % Hickman % (Auto) 13.6 % Eos % (Auto) 2.2 % Baso % (Auto) 0.4 % Neut # (Auto) 3.74 (1.4-6.5) K/uL Lymph # (Auto) 0.92 L (1.2-3.4) K/uL Hickman # (Auto) 0.76 H (0.11-0.59) K/uL Eos # (Auto) 0.12 (0-0.5) K/uL Baso # (Auto) 0.02 (0-0.2) K/uL Immature Gran # (Auto) 0.01 (0.00-0.02) K/uL PT 10.4 (9.0-12.0) Seconds INR 1.0 (0.9-1.1) APTT 31.0 (21.0-31.0) Seconds PTT Ratio 1.2 Sodium 126 L (136-145) mmol/L Potassium 3.2 L (3.5-5.1) mmol/L Chloride 88 L (98-107) mmol/L Carbon Dioxide 30 (21-32) mmol/L Anion Gap 8.0 (3-11) BUN 15 (7-18) mg/dl Creatinine 0.78 (0.6-1.2) mg/dl Est Cr Clr Drug Dosing 41.7 ml/min Est GFR ( Amer) 80.3 ml/min Est GFR (Non-Af Amer) 69.3 ml/min BUN/Creatinine Ratio 19.3 (10-20) Glucose 104 H (70-99) mg/dl Calcium 9.1 (8.5-10.1) mg/dl Total Bilirubin 0.8 (0.2-1) mg/dl AST 23 (15-37) U/L ALT 14 (12-78) Alkaline Phosphatase 57 (45-117) U/L Troponin I < 0.015 (0-0.045) ng/ml Total Protein 8.0 (6.4-8.2) gm/dl Albumin 3.4 (3.4-5.0) gm/dl Globulin 4.6 H (2.5-4.0) gm/dl Albumin/Globulin Ratio 0.7 L (0.9-2) Lipase 75 (73-393) U/L SARS-CoV-2, RNA, NAAT (NEGATIVE) 05/26/21 Range/Units 09:45 WBC (4.8-10.8) K/uL RBC (4.2-5.4) M/uL Hgb (12.0-16.0) g/dL Hct (37-47) % MCV (80-100) fL MCH (25-34) pg MCHC (32-36) g/dL RDW Std Deviation (36.4-46.3) fL RDW Coeff of Dickson (11.5-14.5) % Plt Count (130-400) K/uL MPV (7.4-10.4) fL Immature Gran % (Auto) % Neut % (Auto) % Lymph % (Auto) % Hickman % (Auto) % Eos % (Auto) % Baso % (Auto) % Neut # (Auto) (1.4-6.5) K/uL Lymph # (Auto) (1.2-3.4) K/uL Hickman # (Auto) (0.11-0.59) K/uL Eos # (Auto) (0-0.5) K/uL Baso # (Auto) (0-0.2) K/uL Immature Gran # (Auto) (0.00-0.02) K/uL PT (9.0-12.0) Seconds INR (0.9-1.1) APTT (21.0-31.0) Seconds PTT Ratio Sodium (136-145) mmol/L Potassium (3.5-5.1) mmol/L Chloride (98-107) mmol/L Carbon Dioxide (21-32) mmol/L Anion Gap (3-11) BUN (7-18) mg/dl Creatinine (0.6-1.2) mg/dl Est Cr Clr Drug Dosing ml/min Est GFR ( Amer) ml/min Est GFR (Non-Af Amer) ml/min BUN/Creatinine Ratio (10-20) Glucose (70-99) mg/dl Calcium (8.5-10.1) mg/dl Total Bilirubin (0.2-1) mg/dl AST (15-37) U/L ALT (12-78) Alkaline Phosphatase (45-117) U/L Troponin I (0-0.045) ng/ml Total Protein (6.4-8.2) gm/dl Albumin (3.4-5.0) gm/dl Globulin (2.5-4.0) gm/dl Albumin/Globulin Ratio (0.9-2) Lipase (73-393) U/L SARS-CoV-2, RNA, NAAT NEGATIVE (NEGATIVE) Administered Medications Nitroglycerin (Nitroglycerin 2% Ointment 30gm Tube) 0.5 inch EXT Q6H FRANSISCO Stop: 02/01/22 10:44 Last Admin: 05/26/21 11:33 Dose: 0.5 inch Documented by: [id number] Discontinued Medications Aspirin (Aspirin Chew 324 Mg) 324 mg PO NOW STA Stop: 05/26/21 08:21 Last Admin: 05/26/21 08:23 Dose: 324 mg Documented by: [id number] Imaging Data Radiologist's Impression: Chest X-Ray 05/26/21 08:20 SINGLE VIEW CHEST CLINICAL HISTORY: Atypical chest pain. FINDINGS: An AP, portable, upright chest radiograph is compared to study dated 12/04/2016. The cardiomediastinal silhouette is unremarkable noting atherosclerotic calcification of the thoracic aorta. There is evidence of previous cardiac valve surgery. There is mild bibasilar scarring/atelectasis. The lungs and pleural spaces are otherwise clear. No pneumothorax is seen. The skeletal structures are osteopenic. The bony thorax is grossly intact. Advanced arthritic change is seen in the right shoulder. IMPRESSION: No active disease in the chest. ACT 112: Negative or not required by law. Electronically signed by: Wilfredo Livingston M.D. 05/26/2021 8:51 AM Discharge Plan Visit Data Chief Complaint: Chest Pain Stated Complaint: CHEST PAIN, PAIN DOWN LT ARM ED Provider: Mj Blandon Discharge Problem: Chest pain, Acute hyponatremia Patient Disposition: Being Evaluated by Hospitalist Forms Stand Alone Forms: My [facility] Prescriptions Prescriptions: No Action amoxicillin 500 mg tablet 500 mg PO .COMPLEX Qty: 4 RF: 5 famotidine 20 mg tablet 20 mg PO QAM RF: 0 aspirin 81 mg Tablet,Chewable 81 mg PO QAM RF: 0 chlorthalidone 25 mg tablet 25 mg PO QAM RF: 0 Referrals Referrals: Nhan Sam MD [Primary Care Provider] -
[2021-05-26 09:03] LABS: Albumin Globulin Ratio 0.7 (0.9-2); Alkaline Phosphatase 57 U/L (45-117); Bilirubin,Total 0.8 mg/dl (0.2-1); Globulin 4.6 gm/dl (2.5-4.0); Troponin I < 0.015 ng/ml (0-0.045)
--- NOTE | 2021-05-26 10:59 | History & Physical Report ---
Date of Service May 26, 2021 Assessment & Plan (1) Chest pain: Plan: Chest pain that is more constant than her normal. DDX: angina vs. atypical chest pain not caused by cardiac disease - Patient will be brought in to evlauate for ischemia- trend troponin I, ECG with troponin I, ECHO in am - Last ECHO 08/11- EF 60-65% normal well seated bioprosthetic AVR, mild LVH mild LA dilation - Will likely need addition of antihypertensive - WIll place NTP on chest wall 0.5 inch - Pain reduced with asa (2) Coronary artery disease: Plan: Non-obstructive per HPI and chart review- cath 2019 - As above - Evaluate trend Trops- risk stratify in am (3) H/O aortic valve replacement: Plan: TAVR 2019 - normal ECHO in 2019 - No murmur no symptoms of failure (4) Hypertension: Plan: Elevated to 150-170 - States she took her medications today - BB self stopped by her- cardiology decreased to half dosing in 2019 - Secondary agent likely needed and helpful for mortality reduction (5) Mass of right side of neck: Plan: Noted on problem list- ultrasound performed, which revealed prominent soft tissue, not pathological History of Present Illness Primary Care Provider: Nhan Sam MD 86 YOF with past medical history of: H/o of AVR- bioprosthetic valve(TAVR 2018), non-obstructive CAD (RCA,OM, and Diag), orthostasis, HTN, temporal arteritis, PMR, atypical chest pain. Patient comes to the EMD today for evaluation of chest pain with radiation to her fingers (numbness). This has been ongoing for the past 2 days. The pain feels like her "atypical pain" that she has had over the past years, but she feels now that it is more constant. She is unsure if this comes on with any activity or if it worsened with any activity. This was not associated with any SOB, palpitations, dizziness, or diaphoresis, at times she can feel it in her back along her shoulder blades. Her usual discomfort is in the right shoulder and right chest, the pain she is describing now and is able to pinpoint to is center of her chest that goes across her left chest and left shoulder. She has done some housework this week but can't remember doing anything exrenous. This pain is not reproducible and negative Spurling test as well. The patient is not a good historian when evaluating her symptoms so for this she will be observed overnight and trend Troponin I, ECG, symptoms, and ECHO. In the EMD she received asa, which she feels made her pain less, she had an ECG done that did not reveal any dynamic ch anges and her Troponin I was <0.015. She is noted to be hypertensive in the 160-170 range, she was previously on Atenolol and Chlorthalidone and this was decreased over the past year secondary to bradycardia and orthostasis and she further decreased her medications. She is now measuring her BP at home she reports and states it is usually 120s. She reports taking her medications today. Will admit to MED-Tele, trend enzymes and ECG, will place 0.5 inch NTG paste on now. She received asa as above. COVID test on admission is PENDING Allergies Allergy/AdvReac Type Severity Reaction Status Date / Time No Known Drug Allergies Allergy Verified 05/26/21 08:59 JEWELRY AdvReac Unknown "BREAK Uncoded 05/26/21 08:59 OUT" - SEE NOTE BELOW Home Medications Medication Instructions Recorded Confirmed Type aspirin 81 mg chewable tablet 81 mg PO QAM 11/08/18 05/26/21 History amoxicillin 500 mg tablet 500 mg PO .COMPLEX #4 tab 08/01/19 05/26/21 Rx famotidine 20 mg tablet 20 mg PO QAM 07/19/20 05/26/21 History chlorthalidone 25 mg tablet 25 mg PO QAM 05/26/21 05/26/21 History Past Med/Surg History Medical History GERD (gastroesophageal reflux disease) Hiatal hernia Hx of fracture of pelvis 1 YR AGO Hypertension Personal history of kidney stones Rotator cuff tear right (november 2017) TA (temporal arteritis) Surgical History H/O aortic valve replacement [place] 23 millimeter, December 22, 2018. [facility]. TAVR History of cataract surgery LEFT Hx of colonoscopy Hx of lithotripsy Family History Family/Other Coronary heart disease Father Hypertension Father Cancer Brother Cancer Social History Smoking Status: Never smoker Second Hand Exposure: No; Hx Alcohol Use: No Hx Substance Use: No Preferred Language: Italian Communication Ability: Effective City Dispatcher Required: No Beliefs That Will Affect Care: None Current Living Situation: Alone Feels Safe at Home: Yes Assistive Devices: Glasses Review of Systems Review of Systems: REVIEW OF SYSTEMS: Constitutional: No fever, sweats or chills Eyes: No diplopia, no worsening or blurred vision ENT: normal hearing, no trouble swallowing Respiratory: No cough, sputum, dyspnea at rest or on exertion Cardiovascular: (+) chest pain, tightness, NO palpitations Abdomen: No pain, nausea, vomiting, diarrhea or constipation Musculoskeletal: (+) shoulder, back and chest pain joint pain, calf pain, swelling Neurologic: (+) numbness in fingers (she gets this occasionally), weakness, numbness/tingling, or balance problems Psychiatric: No anxiety or depression Skin: No rash or itch Physical Exam Physical Exam: PHYSICAL EXAM: General: awake, alert, no apparent distress Head: Normocephalic, atraumatic ENT: PERRL, EOMI, no pharyngeal exudate, mucous membranes moist Neuro: AAO x 3, speech clear and appropriate, strength intact bilaterally 5/5, sensation intact and equal all extremities and dermatomes, no pronator drift Chest: equal rise and fall of the chest, no accessory muscle use, no heaves or thrills, Clear to auscultation, on room air, Cardiac: Regular rate and rhythm, telemetry reviewed-NSR, skin warm dry, cap refill <3 seconds, peripheral pulses +2 no JVD, no murmur, no edema GI: NABS x 4 quadrants, soft, nontender to palpation, no rebound, guarding or tenderness : Spontaneously voiding, no pain, no CVA tenderness, Extremities: Normal inspection, no peripheral edema or erythema, calfs nontender to palpation Psych: Normal mood and affect Skin: no rash or erythema Results & Data Results & Data ([facility]) Vital Signs (Past 12 Hours) Vital Signs Temp Pulse Pulse Resp BP BP Pulse Ox 05/26/21 09:30 70 18 170/81 H 99 05/26/21 09:00 73 22 139/65 98 05/26/21 08:20 85 20 180/81 H 99 05/26/21 07:59 37 C 91 H 18 132/82 97 Laboratory Results Abnormal lab results 05/26/21 05/26/21 Range/Units 08:18 08:18 Lymph # (Auto) 0.92 L (1.2-3.4) K/uL Jasper # (Auto) 0.76 H (0.11-0.59) K/uL Sodium 126 L (136-145) mmol/L Potassium 3.2 L (3.5-5.1) mmol/L Chloride 88 L (98-107) mmol/L Glucose 104 H (70-99) mg/dl Globulin 4.6 H (2.5-4.0) gm/dl Albumin/Globulin Ratio 0.7 L (0.9-2) Diagnostic Findings Chest X-Ray 05/26/21 08:20 SINGLE VIEW CHEST CLINICAL HISTORY: Atypical chest pain. FINDINGS: An AP, portable, upright chest radiograph is compared to study dated 12/04/2016. The cardiomediastinal silhouette is unremarkable noting atherosclerotic calcification of the thoracic aorta. There is evidence of previous cardiac valve surgery. There is mild bibasilar scarring/atelectasis. The lungs and pleural spaces are otherwise clear. No pneumothorax is seen. The skeletal structures are osteopenic. The bony thorax is grossly intact. Advanced arthritic change is seen in the right shoulder. IMPRESSION: No active disease in the chest. ACT 112: Negative or not required by law. Electronically signed by: Wilfredo Livingston M.D. 05/26/2021 8:51 AM Medications Administered Discontinued Medications Aspirin (Aspirin Chew 324 Mg) 324 mg PO NOW STA Stop: 05/26/21 08:21 Last Admin: 05/26/21 08:23 Dose: 324 mg Documented by: [id number] ECG Additional Comments: Normal sinus rhythm Left ventricular hypertrophy with repolarization abnormality Anteroseptal infarct (cited on or before 04-DEC-2016) Abnormal ECG When compared with ECG of 04-DEC-2016 10:38, No significant change was found Code Status & VTE Plan Code Status CODE: FULL VTE: Lovenox 40mg Subq daily VTE Prophylaxis Plan VTE Prophylaxis will be ordered: Yes Supervising Physician Co-Signing Physician Notes Patient seen and examined, chart reviewed, case discussed with Zane Brezovic and I agree with the assessment and plan as above except as otherwise noted above. General: A&Ox3. NAD. Cooperative. HEENT: Atraumatic, normocephalic. Visual Acuity/Hearing grossly intact. Pulm: CTAB A&P. -wheezes, -rales, -rhonchi. Symmetrical chest rise. No increase work of breathing. No respiratory distress. Cardiac: RRR, -mrg. Radial pulses intact and symmetrical. Abdominal: Nontender, nondistended, soft. BS present. All labs and images reviewed At time of assessment CP improved to 2/10 with nitro patch. No SoB/dyspnea. Reviewed presentation/plan pt with no questions at bedside 86yo F admit for cadiac eval, HTN control. Trop negative, trended, no acute ST segment changes on EKG. Hypertensive on admit. Nitro patch placed. Improving on reassment. Continue to follow. PG Care Time/CCT Total # of Minutes Spent Total Time Spent with Patient: Total time spent is greater than 50% in coordination of care (as documented) at patient's floor/unit and/or counseling patient: Coding Level of Care Code INT OBSERVATION CARE 70M LVL 3 Diagnoses Chest pain R07.9 Coronary artery disease I25.10 H/O aortic valve replacement Z95.2 Hypertension I10 Mass of right side of neck R22.1
[2021-05-26] MEDS: NITROGLYCERIN 2% OINTMENT 30GM TUBE EXT SCH ×3 (11:33→22:57)
[2021-05-26] MEDS ORDERED: ONDANSETRON INJ 2 MG/ML 2 ML VIAL IV PRN (15:33)
[2021-05-26] MEDS ORDERED: ACETAMINOPHEN 325 MG TAB PO PRN (15:33)
[2021-05-26] MEDS ORDERED: ENOXAPARIN INJ 40 MG/0.4 ML SYR SQ SCH (16:00)
[2021-05-27] MEDS: NITROGLYCERIN 2% OINTMENT 30GM TUBE EXT SCH (06:11)
[2021-05-27 07:00] LABS: Basophils # (auto) 0.02 K/uL (0-0.2); Basophils % (auto) 0.4 %; Eosinophils # (auto) 0.28 K/uL (0-0.5); Eosinophils % (auto) 5.9 %; Hematocrit (blood only) 39.1 % (37-47); Hemoglobin 13.2 g/dL (12.0-16.0); Immature Granulocytes # (auto) 0.01 K/uL (0.00-0.02); Immature Granulocytes % (auto) 0.2 %; Lymphocytes # (auto) 1.19 K/uL (1.2-3.4); Lymphocytes % (auto) 25.2 %; Mean Corpuscular Hemoglobin 30.1 pg (25-34); Mean Corpuscular Hgb Conc 33.8 g/dL (32-36); Mean Corpuscular Volume 89.1 fL (80-100); Mean Platelet Volume 8.9 fL (7.4-10.4); Monocytes # (auto) 0.59 K/uL (0.11-0.59); Monocytes % (auto) 12.5 %; Neutrophils # (auto) 2.64 K/uL (1.4-6.5); Neutrophils % (auto) 55.8 %; Platelet Count 147 K/uL (130-400); RDW Coefficient of Variation 12.8 % (11.5-14.5); RDW Standard Deviation 41.4 fL (36.4-46.3); Red Blood Count 4.39 M/uL (4.2-5.4); White Blood Count 4.73 K/uL (4.8-10.8)
--- NOTE | 2021-05-27 07:44 | Electrocardiogram Report ---
Test Reason : Blood Pressure : / mmHG Vent. Rate : 084 BPM Atrial Rate : 084 BPM P-R Int : 170 ms QRS Dur : 070 ms QT Int : 328 ms P-R-T Axes : 059 062 061 degrees QTc Int : 387 ms Normal sinus rhythm Left ventricular hypertrophy with repolarization abnormality Anteroseptal infarct (cited on or before 04-DEC-2016) Abnormal ECG When compared with ECG of 04-DEC-2016 10:38, No significant change was found Confirmed by Venkatesh Perry ([id number]) on 05/27/2021 7:43:54 AM Referred By: REFERRED SELF Confirmed By:Venkatesh Perry
--- NOTE | 2021-05-27 08:01 | Hospitalist Progress Note ---
Date of Service May 27, 2021 Assessment & Plan (1) Chest pain: (2) Coronary artery disease: (3) H/O aortic valve replacement: (4) Hypertension: (5) TA (temporal arteritis): (6) Mass of right side of neck: (7) Acute hyponatremia: Plan: feeling better no recurrent pain or sob eating well and ambulating .admitted 05/26 with chest pain angina vs atypical CP hx of CAD nonobstructive by cath in 2019 echo most recent july 2019 with ef 60 to 65% asa/ ntg paste / ekg stable echo this am stable with normal ef and no new wall motion changes snd mild mod mr and avr stable serial enzymes negative followed by dr fletcher in the outpatient and appreciate consult and reviewed with cardiology plan for d/c ntg paste and begin imdur 30mg daily .. and rec to consider start atorvastatin 10mg given risks hgb stable 13.2 no further dizziness and will monitor with new meds tolerating ntg paste in hospital and will call if any side effects reports no true syncope no conduction changes and will follow up closely with cardiology she was not eating and drinking well prior to her admission and she is doing better now .. hyponatremia 126 on chlorthalidone (132 as outpatient ) recheck stable recheck in one week outpatient eating better no symptoms family has been giving her fluids with lytes which she will resume k 3.1 and supplemented recheck in the next week 2. HtN 150/74 this am .. hr controlled ....low na diet on chlorthalidone, and ntg paste (inpatient) 3. hx of Aortic valve replacmenet 2019 TAVR 4. Neck mass outpatient u/s reviewed hx of PMR/ temporal arteritis dvt prophylaxis lovenox scds plan d/c today with followup cardiology and dr csaey .. Admission and Anticipated Discharge Date Admission Date: May 26, 2021 Subjective 86 year old admitted with cp and hx of CAD avr feeling better no current cp or sob reviewed cardiology notes ambulating and eating well . .admitted 05/26 with chest pain angina vs atypical CP hx of CAD nonobstructive by cath in 2019 echo most recent july 2019 with ef 60 to 65% asa/ ntg paste / ekg echo this am pending serial enzymes so far negative and pending this am followed by dr fletcher in the outpatient hgb stable 13.2 hyponatremia 126 on chlorthalidone (132 as outpatient ) recheck stable k 3.1 2. HtN 150/74 this am .. hr controlled ....low na diet on chlorthalidone, and ntg paste (inpatient) 3. hx of Aortic valve replacmenet 2019 TAVR 4. Neck mass outpatient u/s reviewed hx of PMR/ temporal arteritis dvt prophylaxis lovenox scds Review of Systems Review of Systems: All systems reviewed & are unremarkable except as noted in HPI & below Physical Exam Constitutional: WD/WN, vitals as above well developed and well nourished Eyes: PERRL, conjunctivae normal, anicteric sclerae Neck: trachea midline, no thyromegaly Respiratory: normal respiratory effort, lungs clear to auscultation Cardiovascular: RRR, no murmur, no edema Vessels: no carotid bruit Extremities: no edema Gastrointestinal (Abdomen): Inspection/Auscultation: abdomen normal to inspection; abdomen not distended Musculoskeletal: no cyanosis or clubbing, extremities motor strength 5/5 Gait: normal gait Psychiatric: A+Ox3, euthymic affect Results & Data Results & Data ([facility]) Vital Signs (Past 12 Hours) Vital Signs Temp Pulse Pulse Resp BP BP Pulse Ox 05/27/21 07:30 97.5 F L 75 18 150/74 H 98 05/27/21 06:10 71 157/63 H 98 05/27/21 05:23 75 05/27/21 04:00 97.7 F 73 18 155/70 H 97 05/26/21 22:52 98.6 F 76 18 117/69 95 PG Care Time/CCT Total # of Minutes Spent Total Time Spent with Patient: Total time spent is greater than 50% in coordination of care (as documented) at patient's floor/unit and/or counseling patient: Coding Level of Care Code 32662 Subseq Obs Care Lvl 3 Diagnoses Chest pain R07.9 Chest pain type: unspecified TA (temporal arteritis) M31.6 Mass of right side of neck R22.1 Coronary artery disease I25.10 H/O aortic valve replacement Z95.2 Hypertension I10 Acute hyponatremia E87.1 Time Spent (min) 45 Comment face to face time + chart review (1) Chest pain Chest pain type: unspecified Qualified Code(s): R07.9 - Chest pain, unspecified
[2021-05-27] MEDS ORDERED: ASPIRIN 81 MG CHEW PO SCH (09:00)
[2021-05-27] MEDS ORDERED: ASPIRIN 81 MG ECTAB PO SCH (09:00)
[2021-05-27] MEDS ORDERED: CHLORTHALIDONE 25 MG TAB PO SCH (09:00)
[2021-05-27] MEDS ORDERED: FAMOTIDINE 20 MG TAB PO SCH (09:00)
[2021-05-27 09:01] LABS: BUN Creatinine Ratio 21.8 (10-20); Blood Urea Nitrogen 13 mg/dl (7-18); Calcium 8.9 mg/dl (8.5-10.1); Carbon Dioxide 29 mmol/L (21-32); Chloride 88 mmol/L (98-107); Creatinine Clr Calc Pharmacy 55.1 ml/min; Est GFR (African American) 96.9 ml/min; Est GFR (Non-African American) 83.6 ml/min; Glucose 96 mg/dl (70-99); Magnesium 1.7 mg/dl (1.8-2.4); Potassium 3.1 mmol/L (3.5-5.1); Sodium 126 mmol/L (136-145)
[2021-05-27 09:05] LABS: Troponin I < 0.015 ng/ml (0-0.045)
--- NOTE | 2021-05-27 09:10 | Cardiology Consultation ---
Date of Consultation May 27, 2021 Assessment & Plan (1) Chest pain: (2) Dizziness: (3) Coronary artery disease: (4) H/O aortic valve replacement: (5) Hypertension: 1. chest pain: This is not appear to be cardiac in nature. She had an extended episode of chest discomfort without elevation in her cardiac bio markers. 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 She has had similar symptoms in the past. She has a history of atypical chest pains. She states that these are often stress related and with company recently she feels that she may have been under more stress. It is also possible this represents musculoskeletal injury or even some connective tissue disease given her history of polymyalgia rheumatica. In any event, her symptoms appear to have resolved with nitroglycerin. I think she could continue her Pepcid and we could add nitroglycerin for symptom relief and blood pressure control. 2. Coronary disease: Nonobstructive disease identified a catheterization in 2019. Current symptoms are not related to coronary disease. She is on a daily aspirin. She would benefit from statin therapy. Given her age, atorvastatin 10 milligrams daily would seem reasonable. 3. Hypertension: Blood pressure elevated at the time of admission. There has been some change in her blood pressure medication over the past year or 2. This was due to symptoms of orthostasis. She did not describe this during her hospitalization but did have some symptoms of dizziness leading up to her hospitalization. I think she could be maintained on chlorthalidone we could add Imdur were 30 milligrams daily both for symptom relief and improvement in blood pressure. Will have to monitor her symptoms after discharge to see if she continues to have episodes of positional dizziness. 4. aortic valve disease: Status post TAVR. Normal exam. Normal echocardiogram performed in 2019. 5. Dizziness: While the patient describes this as "passing out", she did not actually lose consciousness. These episodes seem similar to what she has had in the past which were felt to represent a degree of hypotension. She admits to not eating and drinking well over this time frame. She has not had similar symptoms since admission. I think we can add Imdur or as noted above and m onitor her symptoms as an outpatient. No evidence of conduction disease on telemetry. Narrow complex QRS and normal MS interval. I think this makes a conduction issue less of a concern. History of Present Illness Reason for Consultation: Chest pain Requesting Physician: Laura Attending Physician: Mj Lopez MD History of Present Illness Patient is an 86-year-old woman with a history of nonobstructive coronary disease, aortic valve disease status post however and hypertension who presented with several days chest pain. Patient describes the symptoms as a precordial and left lower breast discomfort She had simultaneous discomfort involving the left shoulder, left arm and left leg. The symptoms were described as Constant in nature. They were present for nearly 3 days. It did not appear to limit her activity or change with activity. She did not report worsening dyspnea. She has had similar symptoms in the past that were not as severe or extended in duration. She has had some anorexia as well. She states that she did not feel like he began drinking for few days and had several episodes of dizziness as well. He has episodes resulted in her sitting down. They did not appear to have involved loss of consciousness although the patient does described this as "passing out". Generally speaking she has been performing her usual activity without new limitation. She is fairly sedentary. Due to the inclement weather she has not been walking as much outside. However, she did not report exertional chest pain or limiting dyspnea associated with her usual activity. No history of lower extremity edema. Allergies Allergy/AdvReac Type Severity Reaction Status Date / Time No Known Drug Allergies Allergy Verified 05/26/21 08:59 JEWELRY AdvReac Unknown "BREAK Uncoded 05/26/21 08:59 OUT" - SEE NOTE BELOW Home Medications Medication Instructions Recorded Confirmed Type aspirin 81 mg chewable tablet 81 mg PO QAM 11/08/18 05/26/21 History amoxicillin 500 mg tablet 500 mg PO .COMPLEX #4 tab 08/01/19 05/26/21 Rx famotidine 20 mg tablet 20 mg PO QAM 07/19/20 05/26/21 History chlorthalidone 25 mg tablet 25 mg PO QAM 05/26/21 05/26/21 History Patient History Medical History GERD (gastroesophageal reflux disease) Hiatal hernia Hx of fracture of pelvis 1 YR AGO Hypertension Personal history of kidney stones Rotator cuff tear right (november 2017) TA (temporal arteritis) Surgical History H/O aortic valve replacement [place] 23 millimeter, December 22, [address]. [facility]. TAVR History of cataract surgery LEFT Hx of colonoscopy Hx of lithotripsy Family History Family/Other Coronary heart disease Father Hypertension Father Cancer Brother Cancer Social History Smoking Status: Never smoker Second Hand Exposure: No; Hx Alcohol Use: No Hx Substance Use: No Preferred Language: Arabic Communication Ability: Effective Occupational Therapist Assistant Required: No Beliefs That Will Affect Care: None Current Living Situation: Family Current Living Situation Comment: grandson lives with the pt Feels Safe at Home: Yes Assistive Devices: Glasses and Walker Review of Systems Review of Systems: Per HPI. Occasional cough which is chronic in nature. One episode of "night sweats" a few days ago. No orthopnea. No lower extremity edema. No subjective fevers. Physical Exam Physical Exam: She is alert and oriented x3. Mood affect appear normal. She answered all questions appropriately. HEENT: Sclerae are anicteric. Pupils are equal and reactive to light and accommodation. Extraocular movements were intact. Neuro: Cranial nerves intact Lungs: Lungs are clear to auscultation bilaterally. There are no rales wheezes or rhonchi. She has normal respiratory effort without use of accessory muscles. There is normal pulmonary excursion. Cardiac: The rhythm was regular. S1 and S2 were normal. Crescendo systolic murmur. The PMI was not markedly displaced on palpation. Abdomen: The abdomen was soft and nontender. back: Mobile 2 centimeter mass just inferior to the coccyx in the subcutaneous tissue Extremities: Patient has bilateral radial pulses that are equal in intensity. There is no evidence cyanosis or clubbing. There was no evidence of significant peripheral edema bilaterally. Skin: There are no rashes noted on examination today. Results & Data ([facility]) Vital Signs (Past 12 Hours) Vital Signs Temp Pulse Pulse Resp BP BP Pulse Ox 05/27/21 07:30 36.4 C L 75 18 150/74 H 98 05/27/21 06:10 71 157/63 H 98 05/27/21 05:23 75 05/27/21 04:00 36.5 C 73 18 155/70 H 97 05/26/21 22:52 37.0 C 76 18 117/69 95 Laboratory Results Abnormal Lab Results 05/26/21 05/26/21 05/27/21 09:45 15:33 06:45 WBC 4.73 L RBC 4.39 Hgb 13.2 Hct 39.1 MCV 89.1 MCH 30.1 MCHC 33.8 RDW Std Deviation 41.4 RDW Coeff of Dickson 12.8 Plt Count 147 MPV 8.9 Immature Gran % (Auto) 0.2 Neut % (Auto) 55.8 Lymph % (Auto) 25.2 [place] % (Auto) 12.5 Eos % (Auto) 5.9 Baso % (Auto) 0.4 Neut # (Auto) 2.64 Lymph # (Auto) 1.19 L [place] # (Auto) 0.59 Eos # (Auto) 0.28 Baso # (Auto) 0.02 Immature Gran # (Auto) 0.01 Sodium Potassium Chloride Carbon Dioxide Anion Gap BUN Creatinine Est Cr Clr Drug Dosing Est GFR ( Amer) Est GFR (Non-Af Amer) BUN/Creatinine Ratio Glucose POC Glucose Calcium Magnesium Troponin I < 0.015 SARS-CoV-2, RNA, NAAT NEGATIVE 05/27/21 05/27/21 06:45 07:25 WBC RBC Hgb Hct MCV MCH MCHC RDW Std Deviation RDW Coeff of Dickson Plt Count MPV Immature Gran % (Auto) Neut % (Auto) Lymph % (Auto) [place] % (Auto) Eos % (Auto) Baso % (Auto) Neut # (Auto) Lymph # (Auto) [place] # (Auto) Eos # (Auto) Baso # (Auto) Immature Gran # (Auto) Sodium 126 L Potassium 3.1 L Chloride 88 L Carbon Dioxide 29 Anion Gap 9.0 BUN 13 Creatinine 0.59 L Est Cr Clr Drug Dosing 55.1 Est GFR ( Amer) 96.9 Est GFR (Non-Af Amer) 83.6 BUN/Creatinine Ratio 21.8 H Glucose 96 POC Glucose 95 Calcium 8.9 Magnesium 1.7 L Troponin I < 0.015 SARS-CoV-2, RNA, NAAT Diagnostic Findings chest x-ray obtained at the time admission not reveal any acute cardiopulmonary disease echocardiogram obtained 08/01/2019: Normal LV systolic function with ejection fraction of 60 65 percent. Mild LVH. Normally functioning bioprosthetic aortic valve. Cardiac catheterization performed 11/17/2018: Nonobstructive disease involving the 1st diagonal and 1st OM. 60-70 percent stenosis in the mid right coronary (FFR Negative). PG Care Time/CCT Total # of Minutes Spent Total Time Spent with Patient: Total time spent is greater than 50% in coordination of care (as documented) at patient's floor/unit and/or counseling patient: Coding Level of Care Code INT OBSERVATION CARE 70M LVL 3 Diagnoses Chest pain R07.9 Chest pain type: unspecified Dizziness R42 Coronary artery disease I25.10 H/O aortic valve replacement Z95.2 Hypertension I10 (1) Chest pain Chest pain type: unspecified Qualified Code(s): R07.9 - Chest pain, unspecified
[2021-05-27] MEDS ORDERED: POTASSIUM CHLORIDE CRTAB 20 MEQ TABCR PO STA (09:54)
--- NOTE | 2021-05-27 10:16 | XCELERA ---
[id number]
--- NOTE | 2021-05-27 13:15 | Electrocardiogram Report ---
Test Reason : Blood Pressure : / mmHG Vent. 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
== END 2021-05-27 13:15 | disposition home or self-care (01) ==
LOC: ED 07:56 → EDINP 07:56 → SUATTDRO 10:14 → 2N 15:32

== ENCOUNTER 2023-06-14 14:06 | Inpatient (IN) ==
[2023-06-14] MEDS ORDERED: traMADol HCL 50 MG TABLET PO STA (14:24)
[2023-06-14 14:38] LABS: Basophils # (auto) 0.03 K/uL (0.00-0.20); Basophils % (auto) 0.3 %; Eosinophils # (auto) 0.49 K/uL (0.00-0.50); Eosinophils % (auto) 5.5 %; Hematocrit (blood only) 37.6 % (37.0-47.0); Hemoglobin 13.2 g/dl (12.0-16.0); Immature Granulocytes # (auto) 0.01 K/uL (0.01-0.20); Immature Granulocytes % (auto) 0.1 %; Lymphocytes # (auto) 1.63 K/uL (1.20-3.40); Lymphocytes % (auto) 18.3 %; Mean Corpuscular Hemoglobin 31.4 pg (25.0-34.0); Mean Corpuscular Hgb Conc 35.1 g/dL (32.0-36.0); Mean Corpuscular Volume 89.5 fL (80.0-100.0); Mean Platelet Volume 8.9 fL (9.4-12.4); Monocytes # (auto) 0.89 K/uL (0.11-0.59); Neutrophils # (auto) 5.84 K/uL (1.40-6.50); Neutrophils % (auto) 65.8 %; Platelet Count 253 K/uL (130-400); RDW Coefficient of Variation 12.9 % (11.5-14.5); White Blood Count 8.89 K/ul (4.8-10.8)
[2023-06-14 14:55] LABS: Albumin Globulin Ratio 1.1 (0.9-2); BUN Creatinine Ratio 28.1 (10-20); Bilirubin,Total 0.7 mg/dl (0.2-1.0); Calcium 9.6 mg/dl (8.6-10.3); Creatinine Clr Calc Pharmacy 53.8 ml/min; Est GFR (African American) 96.6 ml/min; Est GFR (Non-African American) 83.4 ml/min; Globulin 3.5 gm/dl (2.5-4.0); Magnesium 1.4 mg/dl (1.7-2.4); Potassium 3.8 mmol/L (3.5-5.1); Total Protein 7.5 gm/dl (6.0-8.3)
--- NOTE | 2023-06-14 15:31 | Emergency Department Note ---
Impression & Plan Right rib fracture, Accidental fall, Hypomagnesemia ED Provider Note NAME: LISETTE PERRY AGE: 88 SEX: Female INFORMANT: Patient ED PROVIDER(S): Nhan Osorio MD CHIEF COMPLAINT: Fall PLAN: Disposition: Admitted Outpatient prescription management: none Referral: None MEDICAL DECISION MAKING: Patient presented after an accidental fall. Workup was initiated. Patient was recently in the hospital secondary to COVID. Patient unremarkable CBC and chemistry panel. Patient had mild hypomagnesemia noted. CT imaging of the chest and spine were ordered due to the fall. Patient was found to have a rib fracture on the right side. No pneumothorax. She was treated with oral tramadol. Unfortunately she still had significant pain. She was ordered IV morphine for pain control. Discussed inpatient versus outpatient treatment. Patient is requesting inpatient treatment as she does not feel the pain is controlled and that she will be able to function at home. Consultation was made with Dr. Addison of the [facility] service. Patient was evaluated in the ER for further management. Care/management discussed with: network services project manager Level of care consideration(s): After review of the information above and other included data, I feel the patient was stable for discharge however due to her pain with the fracture and social situation requires escalation of care to admission. Triage Nursing notes: reviewed and agree them. Vital Signs: reviewed and remarkable for hypertension Additional History obtained from: none Chronic Medical/Social Conditions affecting care: Hypertension, T4 fracture Prior/ Outside/ External records reviewed: none Differential Diagnosis: Fracture, dislocation, contusion, intra-abdominal, pneumothorax, intrathoracic, intracranial, neurologic, compartment syndrome, rhabdomyolysis, as well as other pathologies. Diagnostics, independently interpreted by me: ECG: Twelve-lead ECG reveals normal sinus rhythm at 76 bpm. LVH. Anteroseptal Q waves which are old. When compared to 18 May 2023 the heart rate is increased by [address] findings are similar. Cardiac Monitoring: Cardiac monitoring ordered by me: The patient was placed on continuous cardiac monitoring and observed. It revealed a normal sinus rhythm at 63 bpm. Medical decision rules: None Imaging studies: CT imaging of the chest and thoracic spine reveals redemonstration of the previous spinal fracture but a new right rib fracture without pneumothorax. HPI: 88 year old Female arrives for evaluation of a fall.This started last and is from falling off her couch. Her feet got tangled in her blanket and she fell over onto her right side. She did not hit her head. This occurred about 11 PM. She did take Tylenol last night and again this morning. She still has pain in the right ribs and shoulder blade area. The patient also notes the following associated symptoms, none. The patient has found no relieving factors. Current pain is rated as 9/10. Patient states she was feeling well over the last couple of days prior to the accident except for some mild lightheadedness. She felt like she was recovering from her recent hospitalization. Pt denies LOC, headache, fevers, chills, diaphoresis, visual changes, neck pain, chest pain, nausea, vomiting, abdominal pain, melena, hematochezia, urinary symptoms, numbness, weakness, lymphadenopathy, rash, or other complaints. PAST MEDICAL HISTORY: See Below, COVID-19, hypertension PAST SURGICAL HISTORY: See Below, SOCIAL HISTORY: See Below, retired HOME MEDICATIONS: See Below ALLERGIES: See Below VITALS: See Below PHYSICAL EXAMINATION: GENERAL: Awake, alert, uncomfortable-appearing, in no distress HENT: Normocephalic, atraumatic. Oropharynx unremarkable. EYES: Normal conjunctiva. Sclera non-icteric. NECK: Inspection normal. Non-tender. Supple. No nuchal rigidity. FROM. No masses. RESPIRATORY: Clear to auscultation. No wheezes. No rales. Normal respiratory effort. CARDIAC: Normal rate. Normal rhythm. No murmurs. No rubs. Extremities warm and well perfused. Pulses equal. No JVD. GI: Soft, non-distended. No tenderness to palpation. No rebound or guarding. No masses. RECTAL: Deferred. MUSCULOSKELETAL: Atraumatic. Chest examination reveals low anterior as well as posterior lateral rib tenderness on the right. The back is symmetrical on inspection without obvious abnormality. There is no CVA tenderness to palpation. No joint edema. LOWER EXTREMITIES: Calves are equal size bilaterally and non-tender. No edema. No discoloration. NEURO: Normal sensorium. No sensory or motor deficits noted. SKIN: No rash or jaundice noted. PROCEDURES: none CRITICAL CARE: none OBSERVATION NOTE: none Past Med/Surg History Medical History Hx of fracture of pelvis Personal history of kidney stones Hiatal hernia Rotator cuff tear TA (temporal arteritis) GERD (gastroesophageal reflux disease) Hypertension Surgical History H/O aortic valve replacement History of cataract surgery Hx of lithotripsy Hx of colonoscopy Family History Family/Other Coronary heart disease Father Hypertension Father Cancer Brother Cancer Social History Smoking Status: Never smoker Tobacco Type: Cigarettes Second Hand Exposure: No; Do You Dip or Chew Tobacco: No; Hx Alcohol Use: No Hx Substance Use: No Preferred Language: Greenlandic Communication Ability: Effective Window Sash Installer Required: No Beliefs That Will Affect Care: None Current Living Situation: Family Current Living Situation Comment: grandson lives with the pt Feels Safe at Home: Yes Assistive Devices: Glasses and Walker Allergies Allergies Allergy/AdvReac Type Severity Reaction Status Date / Time No Known Drug Allergies Allergy Verified 06/08/23 08:58 JEWELRY AdvReac Unknown "BREAK Uncoded 06/08/23 08:58 OUT" - SEE NOTE BELOW Home Meds Home Medications Medication Instructions Recorded Confirmed aspirin 81 mg chewable tablet 81 mg PO QAM 11/08/18 06/14/23 omeprazole 40 mg capsule,delayed 40 mg PO DAILY PRN Acid Reflux 05/18/23 06/14/23 release rosuvastatin 5 mg tablet (Crestor) 5 mg PO QAM 05/18/23 06/14/23 [id number] 4 mg-folic acid 1 tab PO UD 06/08/23 06/14/23 200 mcg-vit K 25 mcg-lutein tablet (Centrum Minis Women 50 Plus) Previous Rx's Medication Instructions Recorded chlorthalidone 25 mg tablet 25 mg PO QAM #90 tabs 02/13/23 methocarbamol 500 mg tablet 500 mg PO Q8H #14 tabs 05/18/23 Results & Data (ED) Vital Signs Vital Signs - 24 hr 06/14/23 14:11 06/14/23 14:18 06/14/23 15:36 Temperature 37.2 C Temperature Source Oral Pulse Rate 79 80 75 Pulse Rate [Right Finger] Pulse Rhythm Regular Regular Pulse Strength Normal Respiratory Rate 19 18 Respiratory Effort / Characteristics Non-Labored Respiratory Depth Normal Respiratory Pattern Regular Blood Pressure 166/82 H Blood Pressure [Right Arm] Blood Pressure Mean 110 Blood Pressure Mean [Right Arm] Pulse Oximetry 97 94 Oxygen Delivery Method Room Air Room Air Sepsis Recent Fever Within 48 Hours No Sepsis New/Unexplained Change in Mental Status No Sepsis Action Taken by Nursing No Action Required 06/14/23 18:00 06/14/23 19:23 06/14/23 20:00 Temperature Temperature Source Pulse Rate 63 Pulse Rate [Right Finger] 69 63 Pulse Rhythm Pulse Strength Respiratory Rate 16 14 Respiratory Effort / Characteristics Non-Labored Spontaneous Respiratory Depth Normal Respiratory Pattern Blood Pressure Blood Pressure [Right Arm] 184/86 H 171/75 H Blood Pressure Mean Blood Pressure Mean [Right Arm] 118 107 Pulse Oximetry 97 97 Oxygen Delivery Method Room Air Room Air Sepsis Recent Fever Within 48 Hours Sepsis New/Unexplained Change in Mental Status Sepsis Action Taken by Nursing Laboratory Data 06/14/23 14:20 06/14/23 14:20 Lab Results 06/14/23 Range/Units 14:20 WBC 8.89 (4.8-10.8) K/ul RBC 4.20 (4.20-5.40) M/uL Hgb 13.2 (12.0-16.0) g/dl Hct 37.6 (37.0-47.0) % MCV 89.5 (80.0-100.0) fL MCH 31.4 (25.0-34.0) pg MCHC 35.1 (32.0-36.0) g/dL RDW Std Deviation 42.0 (36.4-46.3) fL RDW Coeff of Dickson 12.9 (11.5-14.5) % Plt Count 253 (130-400) K/uL MPV 8.9 L (9.4-12.4) fL Immature Gran % (Auto) 0.1 % Neut % (Auto) 65.8 % Lymph % (Auto) 18.3 % Yancey % (Auto) 10.0 % Eos % (Auto) 5.5 % Baso % (Auto) 0.3 % Neut # (Auto) 5.84 (1.40-6.50) K/uL Lymph # (Auto) 1.63 (1.20-3.40) K/uL Yancey # (Auto) 0.89 H (0.11-0.59) K/uL Eos # (Auto) 0.49 (0.00-0.50) K/uL Baso # (Auto) 0.03 (0.00-0.20) K/uL Immature Gran # (Auto) 0.01 (0.01-0.20) K/uL Sodium 133 L (136-145) mmol/L Potassium 3.8 (3.5-5.1) mmol/L Chloride 95 L (98-107) mmol/L Carbon Dioxide 31 (21-32) mmol/L Anion Gap 7 (3-11) BUN 16 (6-23) mg/dl Creatinine 0.57 L (0.6-1.2) mg/dl Est Cr Clr Drug Dosing 53.8 ml/min Est GFR ( Amer) 96.6 ml/min Est GFR (Non-Af Amer) 83.4 ml/min BUN/Creatinine Ratio 28.1 H (10-20) Glucose 113 H (70-99(Fasting)) mg/dl Calcium 9.6 (8.6-10.3) mg/dl Magnesium 1.4 L (1.7-2.4) mg/dl Total Bilirubin 0.7 (0.2-1.0) mg/dl AST 19 (13-39) U/L ALT 9 (7-52) U/L Alkaline Phosphatase 55 (34-104) U/L Total Creatine Kinase 37 (26-192) U/L Total Protein 7.5 (6.0-8.3) gm/dl Albumin 4.0 (3.4-5.0) gm/dl Globulin 3.5 (2.5-4.0) gm/dl Albumin/Globulin Ratio 1.1 (0.9-2) Administered Medications Magnesium Sulfate/Dextrose (Magnesium Sulfate / D5w) 1 gm in 100 mls @ 50 mls/hr IV Q2H FRANSISCO Stop: 06/15/23 02:59 Last Admin: 06/14/23 21:10 Dose: 50 mls/hr Documented By: AB Discontinued Medications Acetaminophen (Acetaminophen 325 Mg Tab) 650 mg PO NOW STA Stop: 06/14/23 20:52 Last Admin: 06/14/23 21:08 Dose: 650 mg Documented By: Chlorthalidone (Chlorthalidone 25 Mg Tab) 25 mg PO NOW STA Stop: 01/21/24 21:13 Last Admin: 06/14/23 21:33 Dose: 25 mg Documented By: AB Magnesium Sulfate/Dextrose (Magnesium Sulfate / D5w) 1 gm in 100 mls @ 50 mls/hr IV ONE ONE Stop: 06/14/23 19:37 Last Infusion: 06/14/23 20:17 Dose: Infused Documented By: Admin: 06/14/23 18:06 Dose: 50 mls/hr Documented By: MT Lidocaine (Lidocaine 5% 1 Patch) 1 patch TD NOW STA Stop: 06/14/23 21:10 Last Admin: 06/14/23 21:33 Dose: 1 patch Documented By: AB Morphine Sulfate (Morphine Sulfate 4 Mg/Ml 1 Ml Carp\\Vial) 2 mg IV Q30M PRN PRN Reason: Pain Stop: 06/28/23 17:37 Last Admin: 06/14/23 20:30 Dose: 2 mg Documented By: Admin: 06/14/23 18:04 Dose: 2 mg Documented By: MT Tramadol HCl (Tramadol Hcl 50 Mg Tablet) 50 mg PO NOW STA Stop: 06/14/23 14:25 Last Admin: 06/14/23 14:30 Dose: 50 mg Documented By: ESSIE Imaging Data Radiologist's Impression: Chest CT 06/14/23 14:23 CT chest diagnostic wo con, CT thoracic spine wo con CLINICAL HISTORY: fall, right anterior low and mid post.lat rib pain TECHNIQUE: Multidetector row helical CT of the chest was performed. Coronal and sagittal reformations were obtained. Automated dose lowering techniques and/or adjustment according to patient size were utilized for this exam. CT DOSE: 345.81 mGy.cm Comparison: Comparison is made to CT chest 05/18/2023 FINDINGS: Lungs and pleura: Interstitial thickening is seen. Interval pulmonary nodules are seen, similar to prior exam. Prominent nodules include the followin mm nodule in the right upper lobe (series 4 image 107) 4 mm nodule in the right middle lobe (image 114) Tree in bud nodularity in the right middle lobe (image 135) 7 mm nodule in the lingula (142) 4 mm nodule in the left lower lobe (image 146) 6 mm nodule in the right lung base (image 189) Heart and pericardium: Aortic valvular calcifications are seen. Biatrial enlargement is noted. Vessels: Severe atherosclerotic changes in the aorta and coronary arteries. Mediastinum and melissa: Multiple enlarged mediastinal lymph nodes are again seen. Chest wall and lower neck: Unremarkable. Abdomen: Moderate hiatal hernia is seen. Bones: There is an acute fracture of the right eighth rib. Irregularity of the posterior right seventh rib may represent a nondisplaced fracture. Degenerative changes of the thoracic spine. Old healed rib fractures are seen. Redemonstration of subacute to chronic T4 compression fracture and old T2 compression fracture. IMPRESSION: 1. Acute fracture of the posterior right eighth rib without evidence of pneumothorax. 2. Stable pulmonary nodules as above. ACT 112: Negative or not required by law. Electronically signed by: Anshul Madrigal M.D. 06/14/2023 3:[address] 06/14/23 14:23 CT chest diagnostic wo con, CT thoracic spine wo con CLINICAL HISTORY: fall, right anterior low and mid post.lat rib pain TECHNIQUE: Multidetector row helical CT of the chest was performed. Coronal and sagittal reformations were obtained. Automated dose lowering techniques and/or adjustment according to patient size were utilized for this exam. CT DOSE: 345.81 mGy.cm Comparison: Comparison is made to CT chest 05/18/2023 FINDINGS: Lungs and pleura: Interstitial thickening is seen. Interval pulmonary nodules are seen, similar to prior exam. Prominent nodules include the followin mm nodule in the right upper lobe (series 4 image 107) 4 mm nodule in the right middle lobe (image 114) Tree in bud nodularity in the right middle lobe (image 135) 7 mm nodule in the lingula (142) 4 mm nodule in the left lower lobe (image 146) 6 mm nodule in the right lung base (image 189) Heart and pericardium: Aortic valvular calcifications are seen. Biatrial enlargement is noted. Vessels: Severe atherosclerotic changes in the aorta and coronary arteries. Mediastinum and melissa: Multiple enlarged mediastinal lymph nodes are again seen. Chest wall and lower neck: Unremarkable. Abdomen: Moderate hiatal hernia is seen. Bones: There is an acute fracture of the right eighth rib. Irregularity of the posterior right seventh rib may represent a nondisplaced fracture. Degenerative changes of the thoracic spine. Old healed rib fractures are seen. Redemonstration of subacute to chronic T4 compression fracture and old T2 compression fracture. IMPRESSION: 1. Acute fracture of the posterior right eighth rib without evidence of pneumothorax. 2. Stable pulmonary nodules as above. ACT 112: Negative or not required by law. Electronically signed by: Anshul Madrigal M.D. 06/14/2023 3:54 PM Discharge Plan Visit Data Chief Complaint: Fall Stated Complaint: fall, shoulder/back pain ED Provider: Nhan Osorio Discharge Problem: Right rib fracture, Accidental fall, Hypomagnesemia Patient Disposition: Admitted As Inpatient Discharge Instructions Interventions: ED Discharge Assessment Last Done: 06/14/23 21:53
--- NOTE | 2023-06-14 15:56 | CT Scan Report ---
CT chest diagnostic wo con, CT thoracic spine wo con CLINICAL HISTORY: fall, right anterior low and mid post.lat rib pain TECHNIQUE: Multidetector row helical CT of the chest was performed. Coronal and sagittal reformations were obtained. Automated dose lowering techniques and/or adjustment according to patient size were u tilized for this exam. CT DOSE: 345.81 mGy.cm Comparison: Comparison is made to CT chest 05/18/2023 FINDINGS: Lungs and pleura: Interstitial thickening is seen. Interval pulmonary nodules are seen, similar to pr ior exam. Prominent nodules include the followin mm nodule in the right upper lobe (series 4 image 107) 4 mm nodule in the right middle lobe (image 114) Tree in bud nodularity in the right middle lobe (image 135) 7 mm nodule in the lingula (142) 4 mm nodule in the left lower lobe (image 146) 6 mm nodule in the right lung base (image 189) Heart and pericardium: Aortic valvular calcifications are seen. Biatrial enlargement is noted. Vessels: Severe atherosclerotic changes in the aorta and coronary arteries. Mediastinum and melissa: Multiple enlarged mediastinal lymph nodes are again seen. Chest wall and lower neck: Unremarkable. Abdomen: Moderate hiatal hernia is seen. Bones: There is an acute fracture of the right eighth rib. Irregularity of the posterior right sevent h rib may represent a nondisplaced fracture. Degenerative changes of the thoracic spine. Old healed r ib fractures are seen. Redemonstration of subacute to chronic T4 compression fracture and old T2 comp ression fracture. IMPRESSION: 1. Acute fracture of the posterior right eighth rib without evidence of pneumothorax. 2. Stable pulmonary nodules as above. ACT 112: Negative or not required by law. Electronically signed by: Anshul Madrigal M.D. 06/14/2023 3:54 PM
[2023-06-14] MEDS ORDERED: MAGNESIUM SULFATE / D5W 1 GM/100 ML BAG IV ONE (17:38)
[2023-06-14] MEDS: MoRPHine SULFATE 4 MG/ML 1 ML CARP\\VIAL IV PRN ×2 (18:04→20:30)
--- NOTE | 2023-06-14 20:44 | History & Physical Report ---
Date of Service June 14, 2023 Assessment & Plan (1) Right rib fracture: Plan: -Admit to med/tele -Currently hemodynamically stable and stable on RA -Had a fall while standing from the cough and was tripped by her blanket -Denies symptoms prior to her fall and did not hit her head -CT of the chest and thoracic spine without con showed an Acute fracture of the posterior right eighth rib without evidence of pneumothorax and her known subacute L4 compression fracture from her last fall in april -No other acute trauma on exam -Will continue pain control with scheduled tylenol, lidocaine patch, heat, and prn morphine q4h for severe pain -Incentive spirometry -PRN narcan for oversedation -PT/OT consults -SQ lovenox for DVT PPX -AM CBC, BMP, mag, (2) Accidental fall: Plan: -Fell as her blanket was wrapped around her legs while trying to stand -PT/OT consults placed -Rest of care per right rib fracture plan (3) Hypomagnesemia: Plan: -Noted to be 1.4 today -Potassium is WNL -S/P 1 gm IV mag sulfate in the ED -Will give 3 additional bags of mag-sulfate overnight -Monitor on tele and am mag level (4) Hypertension: Plan: -Patient confirms she did not take her medications this am prior to ED arrival -BP likely elevated due to pain and not taking am antihypertensive -Will give her dose of PO Chlorthalidone now -Continue Chlorthalidone (5) Dyslipidemia: Plan: -Continue statin (6) Esophageal reflux: Plan: -Continue PPI Plan The patient was discussed with Dr. Addison at the time of the admission History of Present Illness Chief Complaint: fall at home, right shoulder/chest pain Primary Care Provider: Nhan Sam MD Holley is an 88 year old female with a PMH significant for AVR- bioprosthetic valve(TAVR 2019), non-obstructive CAD (RCA,OM, and Diag), orthostasis, HTN, temporal arteritis, PMR, and atypical chest pain who presented to the [facility] ED via EMS on 06/14/23 with complaints of a fall with right shoulder/chest pain. She was noted to be hypertensive on arrival at 184/86 but otherwise stable. Labs were remarkable for a sodium of 133 (appears to be her recent baseline), chloride of 95, and mag of 1.4. CT of the chest and thoracic spine wo con were read as "1. Acute fracture of the posterior right eighth rib without evidence of pneumothorax. 2. Stable pulmonary nodules as above.". Prior to admission the patient was given a dose of 50 mg PO tramadol, 2 doses of 2mg IV morphine, and 1gm IV mag sulfate. At the time of the exam the patient was sitting in bed in no acute distress. She states that she was sleeping on the couch last night with a blanket on. Around 2300 she got up but the blanket was around her feet causing her to fall. She landed on her right side and denies hitting her head or losing consciousness. She states that she was only on the ground for approximately 30 min and was able to pull herself up. She tried to use tylenol at home for pain but it was unsuccessful. She denies any symptoms such as lightheadedness/dizziness, chest pain, or SOB prior to her fall. She is a full code and would want her daughter to make medical decisions for her if she canoot make them herself. Please refer to Dr. Addsion's attestation for any changes to the treatment plan Allergies Allergy/AdvReac Type Severity Reaction Status Date / Time No Known Drug Allergies Allergy Verified 06/08/23 08:58 JEWELRY AdvReac Unknown "BREAK Uncoded 06/08/23 08:58 OUT" - SEE NOTE BELOW Home Medications Medication Instructions Recorded Confirmed Type aspirin 81 mg chewable tablet 81 mg PO QAM 11/08/18 06/14/23 History chlorthalidone 25 mg tablet 25 mg PO QAM #90 tabs 02/13/23 06/14/23 Rx methocarbamol 500 mg tablet 500 mg PO Q8H #14 tabs 05/18/23 06/14/23 Rx omeprazole 40 mg capsule,delayed 40 mg PO DAILY PRN Acid Reflux 05/18/23 06/14/23 History release rosuvastatin 5 mg tablet (Crestor) 5 mg PO QAM 05/18/23 06/14/23 History btzrvysa-[id number]-itqo 4 mg-folic acid 1 tab PO UD 06/08/23 06/14/23 History 200 mcg-vit K 25 mcg-lutein tablet (Centrum Minis Women 50 Plus) Past Med/Surg History Medical History Hx of fracture of pelvis Personal history of kidney stones Hiatal hernia Rotator cuff tear TA (temporal arteritis) GERD (gastroesophageal reflux disease) Hypertension Surgical History H/O aortic valve replacement History of cataract surgery Hx of lithotripsy Hx of colonoscopy Family History Family/Other Coronary heart disease Father Hypertension Father Cancer Brother Cancer Social History Smoking Status: Never smoker Tobacco Type: Cigarettes Second Hand Exposure: No; Do You Dip or Chew Tobacco: No; Hx Alcohol Use: No Hx Substance Use: No Preferred Language: Turkmen Communication Ability: Effective Stonework Tracer Required: No Beliefs That Will Affect Care: None Current Living Situation: Family Current Living Situation Comment: grandson lives with the pt Feels Safe at Home: Yes Assistive Devices: Glasses and Walker Physical Exam Physical Exam: Physical Exam: General: In no acute distress, stated age, well-nourished, good hygiene HEENT: Normocephalic, atraumatic, no scleral icterus, pupils around round, symmetrical, and reactive to light, moist mucus membranes, trachea midline, no thyromegaly Chest/Pulm: No respiratory distress, symmetrical chest expansion, clear breath sounds throughout Cardiac: RRR, no murmurs noted Abdomen: Negative for ascites and bruising, normoactive bowel sounds, soft, non-tender to palpation throughout Musculoskeletal: Tenderness to palpation over the lower posterior ribs without crepitus or subcutaneous emphysema Extremities: Radial, dorsalis pedis, and posterior tibial pulses are intact and symmetrical, no edema noted in the BL LE's Skin: Warm, dry, no rashes , lesions, or scars noted Neuro: Alert and oriented to person, place, month, year, and president, no focal defects, no tremors noted Psych: No acute distress, calm and cooperative during the exam Results & Data Results & Data Vital Signs (Past 12 Hours) Vital Signs Temp Pulse Pulse Resp BP BP Pulse Ox 06/14/23 20:00 63 14 171/75 H 97 06/14/23 19:23 63 06/14/23 18:00 69 16 184/86 H 97 06/14/23 15:36 75 06/14/23 14:18 80 18 94 06/14/23 14:11 37.2 C 79 19 166/82 H 97 O2 Del Method 06/14/23 20:00 Room Air 06/14/23 19:23 06/14/23 18:00 Room Air 06/14/23 15:36 06/14/23 14:18 Room Air 06/14/23 14:11 Room Air Laboratory Results Abnormal lab results 06/14/23 Range/Units 14:20 MPV 8.9 L (9.4-12.4) fL [place] # (Auto) 0.89 H (0.11-0.59) K/uL Sodium 133 L (136-145) mmol/L Chloride 95 L (98-107) mmol/L Creatinine 0.57 L (0.6-1.2) mg/dl BUN/Creatinine Ratio 28.1 H (10-20) Glucose 113 H (70-99(Fasting)) mg/dl Magnesium 1.4 L (1.7-2.4) mg/dl Diagnostic Findings Chest CT 06/14/23 14:23 CT chest diagnostic wo con, CT thoracic spine wo con CLINICAL HISTORY: fall, right anterior low and mid post.lat rib pain TECHNIQUE: Multidetector row helical CT of the chest was performed. Coronal and sagittal reformations were obtained. Automated dose lowering techniques and/or adjustment according to patient size were utilized for this exam. CT DOSE: 345.81 mGy.cm Comparison: Comparison is made to CT chest 05/18/2023 FINDINGS: Lungs and pleura: Interstitial thickening is seen. Interval pulmonary nodules are seen, similar to prior exam. Prominent nodules include the followin mm nodule in the right upper lobe (series 4 image 107) 4 mm nodule in the right middle lobe (image 114) Tree in bud nodularity in the right middle lobe (image 135) 7 mm nodule in the lingula (142) 4 mm nodule in the left lower lobe (image 146) 6 mm nodule in the right lung base (image 189) Heart and pericardium: Aortic valvular calcifications are seen. Biatrial enlargement is noted. Vessels: Severe atherosclerotic changes in the aorta and coronary arteries. Mediastinum and melissa: Multiple enlarged mediastinal lymph nodes are again seen. Chest wall and lower neck: Unremarkable. Abdomen: Moderate hiatal hernia is seen. Bones: There is an acute fracture of the right eighth rib. Irregularity of the posterior right seventh rib may represent a nondisplaced fracture. Degenerative changes of the thoracic spine. Old healed rib fractures are seen. Redemonstration of subacute to chronic T4 compression fracture and old T2 compression fracture. IMPRESSION: 1. Acute fracture of the posterior right eighth rib without evidence of pneumothorax. 2. Stable pulmonary nodules as above. ACT 112: Negative or not required by law. Electronically signed by: Anshul Madrigal M.D. 06/14/2023 3:[address] 06/14/23 14:23 CT chest diagnostic wo con, CT thoracic spine wo con CLINICAL HISTORY: fall, right anterior low and mid post.lat rib pain TECHNIQUE: Multidetector row helical CT of the chest was performed. Coronal and sagittal reformations were obtained. Automated dose lowering techniques and/or adjustment according to patient size were utilized for this exam. CT DOSE: 345.81 mGy.cm Comparison: Comparison is made to CT chest 05/18/2023 FINDINGS: Lungs and pleura: Interstitial thickening is seen. Interval pulmonary nodules are seen, similar to prior exam. Prominent nodules include the followin mm nodule in the right upper lobe (series 4 image 107) 4 mm nodule in the right middle lobe (image 114) Tree in bud nodularity in the right middle lobe (image 135) 7 mm nodule in the lingula (142) 4 mm nodule in the left lower lobe (image 146) 6 mm nodule in the right lung base (image 189) Heart and pericardium: Aortic valvular calcifications are seen. Biatrial enlargement is noted. Vessels: Severe atherosclerotic changes in the aorta and coronary arteries. Mediastinum and melissa: Multiple enlarged mediastinal lymph nodes are again seen. Chest wall and lower neck: Unremarkable. Abdomen: Moderate hiatal hernia is seen. Bones: There is an acute fracture of the right eighth rib. Irregularity of the posterior right seventh rib may represent a nondisplaced fracture. Degenerative changes of the thoracic spine. Old healed rib fractures are seen. Redemonstration of subacute to chronic T4 compression fracture and old T2 compression fracture. IMPRESSION: 1. Acute fracture of the posterior right eighth rib without evidence of pneumothorax. 2. Stable pulmonary nodules as above. ACT 112: Negative or not required by law. Electronically signed by: Anshul Madrigal M.D. 06/14/2023 3:54 PM ECG Additional Comments: Normal sinus rhythm Minimal voltage criteria for LVH, may be normal variant ( Sokolow-Traore ) Anteroseptal infarct (cited on or before 14-JUN-2023) Abnormal ECG When compared with ECG of 18-MAY-2023 17:19, Vent. rate has increased BY [address] now depressed in Anterior leads Code Status & VTE Plan Code Status Full code VTE Prophylaxis Plan VTE Prophylaxis will be ordered: Yes Supervising Physician Co-Signing Physician Notes Patient seen and examined, chart reviewed, case discussed with FABY Goldstein and I agree with the assessment and plan as above. In brief, patient is an 88yo female with history of bioprosthetic AV valve, CAD, HTN presenting after a fall at home sustained yesterday. She was found to have acute fracture of the po sterior right 8th rib with no pneumothorax as well as stable pulmonary nodules. Patient with significant pain from her rib fracture despite several doses of pain medication. No respiratory distress. In the ER she is resting comfortably, NAD Skin - intact, no rash HEENT - MMM, Neck supple Heart - +S1/S2, regular, no m/r/g Lungs - CTA, pain with deep breaths Abd - +BS, soft, NT/ND Ext - warm, well perfused Labs and images reviewed Assessment/Plan: -Pain control with scheduled tylenol, Lidoderm, heat, morphine as needed -Encourage use of incentive spirometer -Mg repletion -Remainder as above PG Care Time/CCT Total # of Minutes Spent Total Time Spent with Patient: Total time spent is greater than 50% in coordination of care (as documented) at patient's floor/unit and/or counseling patient: [place] [address] INT INP/OBS CARE 2/55MIN Patient Type Established Medical Decision Making Moderate Complexity Diagnoses Right rib fracture S22.31XA Accidental fall W19.XXXA Hypomagnesemia E83.42 Hypertension I10 Dyslipidemia E78.5 Esophageal reflux K21.9
[2023-06-14] MEDS ORDERED: ACETAMINOPHEN 325 MG TAB PO STA (20:51)
[2023-06-14] MEDS ORDERED: LIDOCAINE 5% 1 PATCH TD STA (21:09)
[2023-06-14] MEDS: MAGNESIUM SULFATE / D5W 1 GM/100 ML BAG IV SCH ×2 (21:10→22:48)
[2023-06-14] MEDS ORDERED: CHLORTHALIDONE 25 MG TAB PO STA (21:12)
[2023-06-14] MEDS ORDERED: NALOXONE HCL 0.4 MG/1 ML VIAL/CARP IV PRN (21:25)
[2023-06-14] MEDS ORDERED: PANTOprazole 40 MG TAB PO PRN (21:52)
[2023-06-15] MEDS: MAGNESIUM SULFATE / D5W 1 GM/100 ML BAG IV SCH (00:50)
[2023-06-15] MEDS: ACETAMINOPHEN 325 MG TAB PO SCH ×4 (02:52→21:05)
[2023-06-15 04:57] LABS: Hematocrit (blood only) 36.4 % (37.0-47.0); Hemoglobin 12.2 g/dl (12.0-16.0); Mean Corpuscular Hemoglobin 30.7 pg (25.0-34.0); Mean Corpuscular Hgb Conc 33.5 g/dL (32.0-36.0); Mean Corpuscular Volume 91.5 fL (80.0-100.0); Mean Platelet Volume 9.1 fL (9.4-12.4); Platelet Count 230 K/uL (130-400); RDW Coefficient of Variation 12.8 % (11.5-14.5); RDW Standard Deviation 42.2 fL (36.4-46.3); Red Blood Count 3.98 M/uL (4.20-5.40); White Blood Count 7.46 K/ul (4.8-10.8)
[2023-06-15 05:27] LABS: BUN Creatinine Ratio 23.9 (10-20); Calcium 8.9 mg/dl (8.6-10.3); Creatinine Clr Calc Pharmacy 68.1 ml/min; Est GFR (African American) 103.7 ml/min; Est GFR (Non-African American) 89.4 ml/min; Magnesium 2.7 mg/dl (1.7-2.4); Potassium 2.8 mmol/L (3.5-5.1)
[2023-06-15] MEDS ORDERED: POTASSIUM CHLORIDE CRTAB 20 MEQ TABCR PO STA (06:47)
--- NOTE | 2023-06-15 07:04 | Hospitalist Progress Note ---
Date of Service June 15, 2023 Assessment & Plan (1) Right rib fracture: (2) COVID-19: (3) Accidental fall: (4) Hypomagnesemia: (5) Esophageal reflux: (6) Dyslipidemia: Plan 88yo female with multiple medical problems admitted s/p mechanical fall found to have R rib fracture and +COVID-19 #R Rib Fx -Admit to med/tele -Currently hemodynamically stable and stable on RA -pain control with scheduled tylenol, lidocaine patch, heat, and prn morphine q4h for severe pain -Incentive spirometry -PRN narcan for oversedation -PT/OT consults -SQ lovenox for DVT PPX -AM CBC, BMP, mag # COVID-19 -Positive -Isolation precautions -Supportive care # Accidental fall: -Fell as her blanket was wrapped around her legs while trying to stand -PT/OT consults placed -Rest of care per right rib fracture plan #Hypokalemia -2.8 today -Replete as indicated #Hypomagnesemia: -1.4-->2.7 -Replete as indicated # Hypertension: -Continue Chlorthalidone # Dyslipidemia: -Continue statin # Esophageal reflux: -Continue PPI FENGI: Heart healthy Code status: full DVT prophylaxis: lovenox Isolation: COVID Disposition: obs Admission and Anticipated Discharge Date Admission Date: June 14, 2023 Supervising Physician Co-Signing Physician Notes Attending attestation Pt seen and examined in concert with Dr. Piedra. In agreement with the documented findings as noted in the resident documentation with any exceptions or additions as noted here. Pain adequately controlled on current regimen with improvement from time of admission. On examination, S1/S2 nl RRR no MCG. CTAB. Abd NT/ND BS+ve Right rib fx, 8th, possibly 2/2 age-related osteoporosis with pathologic fracture - pain control as noted. Encourage engage w/ rehab services. Adjust pain regimen as needed for pt comfort. Accidental, mechanical fall - PT/OT consult Hypokalemia - replete, 2.8 today COVID 19, resolved Else see resident documentation as noted. Subjective Pt with continued pain in R chest wall. Pain reasonably well controlled. Denies DONG, SOB, N/V/D, LE edema Review of Systems Review of Systems: reviewed, per HPI Physical Exam Physical Exam: General: patient resting comfortably, NAD, non-toxic in appearance, answers questions appropriately and follows commands. Skin: warm, dry, intact HEENT: NC/AT, anicteric sclera, conjunctiva without injection, moist mucus membranes, trachea midline Heart: +S1/S2, regular, no m/r/g Lungs: equal air entry bilaterally, no rales/rhonchi/wheezes Abd: +BS, soft, NT/ND Ext: warm, no clubbing/cyanosis or edema Neuro: nonfocal, speech intact, no facial droop, moving all extremities on command. Results & Data Results & Data Vital Signs (Past 12 Hours) Vital Signs Temp Pulse Pulse Resp BP BP Pulse Ox 06/15/23 05:30 61 14 96 06/15/23 05:00 60 9 L 96 06/15/23 05:00 157/68 H 06/15/23 04:43 73 16 91 06/15/23 04:43 179/75 H 06/15/23 04:38 36.8 C 66 17 168/80 H 97 06/15/23 04:30 63 22 168/80 H 06/15/23 04:00 64 12 95 06/15/23 03:30 64 19 94 06/15/23 03:00 66 15 93 06/15/23 01:42 06/15/23 01:42 06/15/23 01:41 65 18 186/81 H 95 06/15/23 01:00 62 14 96 06/15/23 00:50 66 18 98 06/15/23 00:49 161/77 H 06/15/23 00:49 161/77 H 06/15/23 00:49 63 13 98 06/15/23 00:40 66 15 98 06/15/23 00:30 67 16 98 06/15/23 00:20 63 16 96 06/15/23 00:10 60 14 96 06/15/23 00:00 59 L 15 93 06/14/23 23:50 61 15 95 06/14/23 23:40 64 11 L 98 06/14/23 23:30 61 16 97 06/14/23 23:20 62 13 95 06/14/23 23:10 62 9 L 96 06/14/23 23:00 62 4 L 96 06/14/23 23:00 64 06/14/23 22:30 65 13 95 06/14/23 22:30 138/73 06/14/23 22:20 63 16 96 06/14/23 22:10 63 14 94 06/14/23 22:00 158/73 H 06/14/23 22:00 65 18 95 06/14/23 21:50 64 13 94 06/14/23 21:40 69 18 98 06/14/23 21:30 69 13 95 06/14/23 21:30 153/73 H 06/14/23 21:20 71 15 89 L 06/14/23 21:10 77 15 98 06/14/23 21:00 68 19 97 06/14/23 21:00 171/88 H 06/14/23 20:50 63 12 94 06/14/23 20:40 65 14 06/14/23 20:33 71 13 06/14/23 20:10 62 3 L 96 06/14/23 20:00 62 5 L 98 06/14/23 20:00 171/75 H 06/14/23 20:00 63 14 171/75 H 97 06/14/23 19:50 61 15 97 06/14/23 19:40 62 4 L 97 06/14/23 19:30 174/84 H 06/14/23 19:30 63 7 L 97 06/14/23 19:23 63 06/14/23 19:20 64 15 97 06/14/23 19:10 64 4 L 97 06/14/23 19:00 64 14 97 06/14/23 19:00 167/74 H Pulse Ox O2 Del Method O2 Del Method 06/15/23 05:30 06/15/23 05:00 06/15/23 05:00 06/15/23 04:43 06/15/23 04:43 06/15/23 04:38 Room Air 06/15/23 04:30 06/15/23 04:00 06/15/23 03:30 06/15/23 03:00 06/15/23 01:42 95 Room Air 06/15/23 01:42 95 Room Air 06/15/23 01:41 Room Air 06/15/23 01:00 06/15/23 00:50 06/15/23 00:49 06/15/23 00:49 06/15/23 00:49 06/15/23 00:40 06/15/23 00:30 06/15/23 00:20 06/15/23 00:10 06/15/23 00:00 06/14/23 23:50 06/14/23 23:40 06/14/23 23:30 06/14/23 23:20 06/14/23 23:10 06/14/23 23:00 06/14/23 23:00 06/14/23 22:30 06/14/23 22:30 06/14/23 22:20 06/14/23 22:10 06/14/23 22:00 06/14/23 22:00 06/14/23 21:50 06/14/23 21:40 06/14/23 21:30 06/14/23 21:30 06/14/23 21:20 06/14/23 21:10 06/14/23 21:00 06/14/23 21:00 06/14/23 20:50 06/14/23 20:40 06/14/23 20:33 06/14/23 20:10 06/14/23 20:00 06/14/23 20:00 06/14/23 20:00 Room Air 06/14/23 19:50 06/14/23 19:40 06/14/23 19:30 06/14/23 19:30 06/14/23 19:23 06/14/23 19:20 06/14/23 19:10 06/14/23 19:00 06/14/23 19:00 Diagnostic Findings -CT of the chest and thoracic spine without con showed an Acute fracture of the posterior right eighth rib without evidence of pneumothorax and her known subacute L4 compression fracture from her last fall in april
[2023-06-15] MEDS: CHLORTHALIDONE 25 MG TAB PO SCH (09:33)
[2023-06-15] MEDS: ASPIRIN 81 MG CHEW PO SCH (09:33)
[2023-06-15] MEDS: ROSUVASTATIN CALCIUM 5 MG TAB PO SCH (09:34)
[2023-06-15] MEDS: MoRPHine SULFATE 2 MG/ML CARP IV PRN ×2 (10:05→18:23)
[2023-06-15] MEDS ORDERED: hydrALAZINE HCL 20 MG/ML VIAL IV PRN (10:42)
--- NOTE | 2023-06-15 14:19 | Electrocardiogram Report ---
Test Reason : Blood Pressure : / mmHG Vent. Rate : 076 BPM Atrial Rate : 076 BPM P-R Int : 176 ms QRS Dur : 066 ms QT Int : 370 ms P-R-T Axes : 030 040 038 degrees QTc Int : 416 ms Normal sinus rhythm Minimal voltage criteria for LVH, may be normal variant Anteroseptal infarct (cited on or before 14-JUN-2023) Abnormal ECG When compared with ECG of 18-MAY-2023 17:19, Vent. rate has increased BY [address] now depressed in Anterior leads Confirmed by Matias Saeed ([id number]) on 06/15/2023 2:19:29 PM Referred By: REFERRED SELF Confirmed By:Marko Saeed
[2023-06-16] MEDS: ACETAMINOPHEN 325 MG TAB PO SCH ×4 (03:18→21:49)
[2023-06-16] MEDS ORDERED: LIDOCAINE 5% 1 PATCH TD ONE (03:45)
[2023-06-16 07:07] LABS: Hematocrit (blood only) 37.2 % (37.0-47.0); Hemoglobin 12.8 g/dl (12.0-16.0); Mean Corpuscular Hgb Conc 34.4 g/dL (32.0-36.0); Mean Corpuscular Volume 90.1 fL (80.0-100.0); Mean Platelet Volume 8.9 fL (9.4-12.4); Platelet Count 251 K/uL (130-400); RDW Coefficient of Variation 13.1 % (11.5-14.5); RDW Standard Deviation 42.8 fL (36.4-46.3); Red Blood Count 4.13 M/uL (4.20-5.40); White Blood Count 7.71 K/ul (4.8-10.8)
[2023-06-16 07:28] LABS: BUN Creatinine Ratio 26.1 (10-20); Calcium 9.5 mg/dl (8.6-10.3); Creatinine Clr Calc Pharmacy 45.4 ml/min; Est GFR (African American) 90.7 ml/min; Est GFR (Non-African American) 78.3 ml/min; Magnesium 1.6 mg/dl (1.7-2.4); Potassium 3.8 mmol/L (3.5-5.1)
[2023-06-16] MEDS: MoRPHine SULFATE 2 MG/ML CARP IV PRN (07:36)
--- NOTE | 2023-06-16 08:10 | Hospitalist Progress Note ---
Date of Service June 16, 2023 Assessment & Plan (1) Right rib fracture: (2) COVID-19: (3) Accidental fall: (4) Hypomagnesemia: (5) Esophageal reflux: (6) Dyslipidemia: Plan 88yo female with multiple medical problems admitted s/p mechanical fall found to have R rib fracture #R Rib Fx -Pain control dilaudid 1mg q4h -Currently hemodynamically stable and stable on RA -Incentive spirometry -PRN narcan for oversedation -PT/OT consults -SQ lovenox for DVT PPX -AM CBC, BMP, mag #Accidental fall: -Fell as her blanket was wrapped around her legs while trying to stand -PT/OT consults placed -Rest of care per right rib fracture plan # Hypokalemia -2.8 -->3.8 -Replete as indicated # Hypomagnesemia: -1.4-->2.7-->1.7 -Replete as indicated # Hypertension: -Continue Chlorthalidone # Dyslipidemia: -Continue statin # Esophageal reflux: -Continue PPI FENGI: Heart healthy Code status: full DVT prophylaxis: lovenox Isolation: COVID Disposition: obs Admission and Anticipated Discharge Date Admission Date: June 15, 2023 Supervising Physician Co-Signing Physician Notes Attending attestation Pt seen and examined in concert with Dr. Piedra. In agreement with the documented findings as noted in the resident documentation with any exceptions or additions as noted here. Improved pain control with escalated regimen, no new complaints On examination, S1/S2 nl RRR no MCG. CTAB. Abd NT/ND BS+ve Right rib fx with concern for pathologic fracture in the setting of age related osteoporosis - pain control as noted, transition to PO for outpatient management to ensure tolerance. Encourage engage w/ rehab services. Accidental, mechanical fall - PT/OT consult Hypokalemia - 3.8 today post repletion COVID 19 Resolved Else see resident documentation as noted. Subjective No acute events overnight. Pt with continued pain in R chest wall. Pain reasonably well controlled. VSS. Labs reviewed: mag 1.6, otherwise largely unremarkable. Denies DONG, SOB, N/V/D, LE edema Review of Systems Review of Systems: reviewed, per HPI Physical Exam Physical Exam: General: patient resting comfortably, NAD, non-toxic in appearance, answers questions appropriately and follows commands. Skin: warm, dry, intact HEENT: NC/AT, anicteric sclera, conjunctiva without injection, moist mucus membranes, trachea midline Heart: +S1/S2, regular, no m/r/g Lungs: equal air entry bilaterally, no rales/rhonchi/wheezes Abd: +BS, soft, NT/ND Ext: warm, no clubbing/cyanosis or edema Neuro: nonfocal, speech intact, no facial droop, moving all extremities on command. Results & Data Results & Data Vital Signs (Past 12 Hours) Vital Signs Temp Pulse Resp BP Pulse Ox O2 Del Method 06/16/23 07:05 36.7 C 73 16 151/76 H 94 Room Air 06/15/23 21:23 36.7 C 72 18 163/68 H 95 Room Air 06/15/23 20:30 Room Air
[2023-06-16] MEDS ORDERED: HYDROmorphone INJ 1 MG/ML SYRINGE IV PRN ×2 (08:18→18:10)
[2023-06-16] MEDS ORDERED: MoRPHine SULFATE 2 MG/ML CARP IV STA (08:18)
[2023-06-16] MEDS: ROSUVASTATIN CALCIUM 5 MG TAB PO SCH (08:20)
[2023-06-16] MEDS: CHLORTHALIDONE 25 MG TAB PO SCH (08:20)
[2023-06-16] MEDS: ASPIRIN 81 MG CHEW PO SCH (08:37)
[2023-06-16] MEDS: MAGNESIUM OXIDE 400 MG TAB PO SCH ×2 (09:12→19:45)
[2023-06-16 10:42] LABS: Adenovirus PCR Not Detected (NotDetected); Bordetella parapertussis PCR Not Detected (NotDetected); Bordetella pertussis PCR Not Detected (NotDetected); Chlamydia pneumoniae PCR Not Detected (NotDetected); Coronavirus 229E PCR Not Detected (NotDetected); Coronavirus CoV-2 (COVID19)PCR Not Detected (NotDetected); Coronavirus HKU1 PCR Not Detected (NotDetected); Coronavirus NL63 PCR Not Detected (NotDetected); Coronavirus OC43PCR Not Detected (NotDetected); Human Metapneumovirus PCR Not Detected (NotDetected); Influenza A PCR Not Detected (NotDetected); Influenza B PCR Not Detected (NotDetected); Mycoplasma pneumoniae PCR Not Detected (NotDetected); Parainfluenza Virus 1 PCR Not Detected (NotDetected); Parainfluenza Virus 2 PCR Not Detected (NotDetected); Parainfluenza Virus 3 PCR Not Detected (NotDetected); Parainfluenza Virus 4 PCR Not Detected (NotDetected); Respiratory Syncytial VirusPCR Not Detected (NotDetected); Rhinovirus/Enterovirus PCR Not Detected (NotDetected)
[2023-06-16] MEDS: LIDOCAINE 5% 1 PATCH TD SCH (17:18)
[2023-06-16] MEDS ORDERED: oxyCODONE/ACETAMINOPHEN 5mg/325mg TAB PO PRN (17:26)
[2023-06-16] MEDS: oxyCODONE/ACETAMINOPHEN 5mg/325mg TAB PO PRN (19:45)
[2023-06-17] MEDS: oxyCODONE/ACETAMINOPHEN 5mg/325mg TAB PO PRN ×2 (01:59→06:13)
[2023-06-17] MEDS: ACETAMINOPHEN 325 MG TAB PO SCH ×4 (02:16→20:13)
[2023-06-17] MEDS ORDERED: POLYETHYLENE (MIRALAX) 17 GM PACK PO PRN (04:39)
[2023-06-17 07:54] LABS: Calcium 9.5 mg/dl (8.6-10.3); Magnesium 1.6 mg/dl (1.7-2.4); Potassium 3.8 mmol/L (3.5-5.1)
[2023-06-17 07:59] LABS: BUN Creatinine Ratio 27.6 (10-20); Creatinine Clr Calc Pharmacy 41.2 ml/min; Est GFR (African American) 81.7 ml/min; Est GFR (Non-African American) 70.5 ml/min
[2023-06-17] MEDS: CHLORTHALIDONE 25 MG TAB PO SCH (08:22)
[2023-06-17] MEDS: MAGNESIUM OXIDE 400 MG TAB PO SCH ×3 (08:23→20:06)
[2023-06-17] MEDS: ROSUVASTATIN CALCIUM 5 MG TAB PO SCH (08:23)
[2023-06-17] MEDS: LIDOCAINE 5% 1 PATCH TD SCH (08:23)
[2023-06-17] MEDS: ASPIRIN 81 MG CHEW PO SCH (08:26)
--- NOTE | 2023-06-17 13:49 | Hospitalist Progress Note ---
Date of Service June 17, 2023 Assessment & Plan (1) Right rib fracture: (2) COVID-19: (3) Accidental fall: (4) Hypomagnesemia: (5) Esophageal reflux: (6) Dyslipidemia: Plan 88yo female with multiple medical problems admitted s/p mechanical fall found to have R rib fracture #R Rib Fx -Pain control dilaudid 1mg q4h -Currently hemodynamically stable and stable on RA -Incentive spirometry -PRN narcan for oversedation -PT/OT consults -SQ lovenox for DVT PPX -AM CBC, BMP, mag #Accidental fall: -Fell as her blanket was wrapped around her legs while trying to stand -PT/OT consults placed -Rest of care per right rib fracture plan #Constipation - likely opiate induced vs reduced mobility - Miralax - Goal of 1 BM/day # Hypokalemia -2.8 -->3.8 -Replete as indicated # Hypomagnesemia: -1.6 today, will increase nighttime supplement to 800mg -Replete as indicated # Hypertension: -Continue Chlorthalidone # Dyslipidemia: -Continue statin # Esophageal reflux: -Continue PPI FENGI: Heart healthy Code status: full DVT prophylaxis: lovenox Isolation: COVID Disposition: obs Admission and Anticipated Discharge Date Admission Date: June 15, 2023 Supervising Physician Co-Signing Physician Notes Attending attestation Pt seen and examined in concert with Dr. Piedra. In agreement with the documented findings as noted in the resident documentation with any exceptions or additions as noted here. Approaching optimized pain control on current regimen, able to sit in chair upright. Is having intermittent 'fuzziness' with walking to bathroom and at rest since starting PO opioid medication. On examination, S1/S2 nl RRR no MCG. CTAB. Abd NT/ND BS+ve Dizziness/fuzziness - likely 2/2 opioid pain medication vs. valsalva from constipation - continue to monitor Constipation - miralax with escalation of regimen w/ goal of 1-2 BM per day. No BM per patient x 3 days Right rib fx - pain control as noted. Encourage engage w/ rehab services. Accidental, mechanical fall - PT/OT consult rec'd home w/ HHPT Else see resident documentation as noted. Subjective No acute events overnight. Pt with continued pain in R chest wall. Pain well controlled. VSS. Labs reviewed: mag 1.6, otherwise largely unremarkable. Having some dizziness/fuzziness - likely multifactorial Reports constipation Denies DONG, SOB, N/V/D, LE edema Review of Systems Review of Systems: reviewed, per HPI Physical Exam Physical Exam: General: patient resting comfortably, NAD, non-toxic in appearance, answers questions appropriately and follows commands. Skin: warm, dry, intact HEENT: NC/AT, anicteric sclera, conjunctiva without injection, moist mucus membranes, trachea midline Heart: +S1/S2, regular, no m/r/g Lungs: equal air entry bilaterally, no rales/rhonchi/wheezes Abd: +BS, soft, NT/ND Ext: warm, no clubbing/cyanosis or edema Neuro: nonfocal, speech intact, no facial droop, moving all extremities on command. Results & Data Results & Data Vital Signs (Past 12 Hours) Vital Signs Temp Pulse Resp BP Pulse Ox O2 Del Method 06/17/23 11:11 95 06/17/23 07:27 36.4 C L 76 16 152/56 H 95 Room Air
[2023-06-17] MEDS: oxyCODONE HCL IR 5 MG TAB (IMMEDIATE RELEASE) PO PRN ×2 (14:21→20:05)
[2023-06-17] MEDS ORDERED: MAGNESIUM OXIDE 400 MG TAB PO ONE (18:00)
[2023-06-18] MEDS: ACETAMINOPHEN 325 MG TAB PO SCH ×4 (02:56→19:49)
--- NOTE | 2023-06-18 07:25 | Hospitalist Progress Note ---
Date of Service June 18, 2023 Assessment & Plan (1) Right rib fracture: (2) COVID-19: (3) Accidental fall: (4) Hypomagnesemia: (5) Esophageal reflux: (6) Dyslipidemia: Plan 88yo female with multiple medical problems admitted s/p mechanical fall found to have R rib fracture #R Rib Fx -Pain control dilaudid 1mg q4h -Currently hemodynamically stable and stable on RA -Incentive spirometry -PRN narcan for oversedation -PT/OT consults -SQ lovenox for DVT PPX -AM CBC, BMP, mag #Accidental fall: -Fell as her blanket was wrapped around her legs while trying to stand -PT/OT consults placed -Rest of care per right rib fracture plan #Constipation - likely opiate induced vs reduced mobility - Miralax - Goal of 1 BM/day # Hypokalemia -2.8 -->3.8 -Replete as indicated # Hypomagnesemia: -1.6 today, will increase nighttime supplement to 800mg -Replete as indicated # Hypertension: -Continue Chlorthalidone # Dyslipidemia: -Continue statin # Esophageal reflux: -Continue PPI FENGI: Heart healthy Code status: full DVT prophylaxis: lovenox Isolation: COVID Disposition: obs Admission and Anticipated Discharge Date Admission Date: June 15, 2023 Supervising Physician Co-Signing Physician Notes Attending attestation Pt seen and examined in concert with Dr. Piedra. In agreement with the documented findings as noted in the resident documentation with any exceptions or additions as noted here. Pain adequately controlled on present medication regimen, engaged with PT services and interested in rehab 2/2 demands of home setting and lack of support. On examination, S1/S2 nl RRR no MCG. CTAB. Abd NT/ND BS+ve Dizziness/fuzziness - likely 2/2 opioid pain medication vs. valsalva from constipation - continue to monitor Constipation - miralax with escalation of regimen w/ goal of 1-2 BM per day Right rib fx - pain control. Encourage engage w/ rehab services. Accidental, mechanical fall - PT/OT consult for re-assessment with dizziness/instability reported and new info about lack of home support. Else see resident documentation as noted. Subjective No acute events overnight. Pt with continued pain in R chest wall. Pain well controlled. VSS. Labs reviewed: mag 1.6, otherwise largely unremarkable. Reports has had bowel movement. Still reporting dizziness, unsteadiness. Would like to pursue acute rehab. Denies DONG, SOB, N/V/D, LE edema Review of Systems Review of Systems: reviewed, per HPI Physical Exam Physical Exam: General: patient resting comfortably, NAD, non-toxic in appearance, answers questions appropriately and follows commands. Skin: warm, dry, intact HEENT: NC/AT, anicteric sclera, conjunctiva without injection, moist mucus membranes, trachea midline Heart: +S1/S2, regular, no m/r/g Lungs: equal air entry bilaterally, no rales/rhonchi/wheezes Abd: +BS, soft, NT/ND Ext: warm, no clubbing/cyanosis or edema Neuro: nonfocal, speech intact, no facial droop, moving all extremities on command. Results & Data Results & Data Vital Signs (Past 12 Hours) Vital Signs Temp Pulse Resp BP Pulse Ox O2 Del Method 06/18/23 07:21 36.5 C 68 18 167/69 H 96 Room Air 06/17/23 19:49 36.6 C 66 16 131/57 L 94 Room Air
[2023-06-18] MEDS: oxyCODONE HCL IR 5 MG TAB (IMMEDIATE RELEASE) PO PRN ×2 (07:26→14:09)
[2023-06-18] MEDS: ASPIRIN 81 MG CHEW PO SCH (09:06)
[2023-06-18] MEDS: CHLORTHALIDONE 25 MG TAB PO SCH (09:07)
[2023-06-18] MEDS: ROSUVASTATIN CALCIUM 5 MG TAB PO SCH (09:07)
[2023-06-18] MEDS: MAGNESIUM OXIDE 400 MG TAB PO SCH ×2 (09:07→19:49)
[2023-06-18] MEDS: LIDOCAINE 5% 1 PATCH TD SCH (09:07)
[2023-06-19] MEDS: ACETAMINOPHEN 325 MG TAB PO SCH ×2 (02:28→08:19)
[2023-06-19] MEDS: oxyCODONE HCL IR 5 MG TAB (IMMEDIATE RELEASE) PO PRN (03:43)
[2023-06-19] MEDS: CHLORTHALIDONE 25 MG TAB PO SCH (08:16)
[2023-06-19] MEDS: ROSUVASTATIN CALCIUM 5 MG TAB PO SCH (08:17)
[2023-06-19] MEDS: MAGNESIUM OXIDE 400 MG TAB PO SCH (08:17)
[2023-06-19] MEDS: LIDOCAINE 5% 1 PATCH TD SCH (08:17)
[2023-06-19] MEDS: ASPIRIN 81 MG CHEW PO SCH (08:19)
--- NOTE | 2023-06-19 17:37 | Discharge Summary ---
Date of Service June 19, 2023 Admission HPI Per Admitting Provider Holley is an 88 year old female with a PMH significant for AVR- bioprosthetic valve(TAVR 2019), non-obstructive CAD (RCA,OM, and Diag), orthostasis, HTN, temporal arteritis, PMR, and atypical chest pain who presented to the [facility] ED via EMS on 06/14/23 with complaints of a fall with right shoulder/chest pain. She was noted to be hypertensive on arrival at 184/86 but otherwise stable. Labs were remarkable for a sodium of 133 (appears to be her recent baseline), chloride of 95, and mag of 1.4. CT of the chest and thoracic spine wo con were read as "1. Acute fracture of the posterior right eighth rib without evidence of pneumothorax. 2. Stable pulmonary nodules as above.". Prior to admission the patient was given a dose of 50 mg PO tramadol, 2 doses of 2mg IV morphine, and 1gm IV mag sulfate. At the time of the exam the patient was sitting in bed in no acute distress. She states that she was sleeping on the couch last night with a blanket on. Around 2300 she got up but the blanket was around her feet causing her to fall. She landed on her right side and denies hitting her head or losing consciousness. She states that she was only on the ground for approximately 30 min and was able to pull herself up. She tried to use tylenol at home for pain but it was unsuccessful. She denies any symptoms such as lightheadedness/dizziness, chest pain, or SOB prior to her fall. She is a full code and would want her daughter to make medical decisions for her if she canoot make them herself. Please refer to Dr. Addison's attestation for any changes to the treatment plan Admission Exam Per Admitting Provider General: In no acute distress, stated age, well-nourished, good hygiene HEENT: Normocephalic, atraumatic, no scleral icterus, pupils around round, symmetrical, and reactive to light, moist mucus membranes, trachea midline, no thyromegaly Chest/Pulm: No respiratory distress, symmetrical chest expansion, clear breath sounds throughout Cardiac: RRR, no murmurs noted Abdomen: Negative for ascites and bruising, normoactive bowel sounds, soft, non- tender to palpation throughout Musculoskeletal: Tenderness to palpation over the lower posterior ribs without crepitus or subcutaneous emphysema Extremities: Radial, dorsalis pedis, and posterior tibial pulses are intact and symmetrical, no edema noted in the BL LE's Skin: Warm, dry, no rashes , lesions, or scars noted Neuro: Alert and oriented to person, place, month, year, and president, no focal defects, no tremors noted Psych: No acute distress, calm and cooperative during the exam Principal Diagnosis Rib fracture Discharge Exam General: patient resting comfortably, NAD, non-toxic in appearance, answers questions appropriately and follows commands. Skin: warm, dry, intact HEENT: NC/AT, anicteric sclera, conjunctiva without injection, moist mucus membranes, trachea midline Heart: +S1/S2, regular, no m/r/g Lungs: equal air entry bilaterally, no rales/rhonchi/wheezes Abd: +BS, soft, NT/ND Ext: warm, no clubbing/cyanosis or edema Neuro: nonfocal, speech intact, no facial droop, moving all extremities on command. Discharge Data Allergies Allergy/AdvReac Type Severity Reaction Status Date / Time No Known Drug Allergies Allergy . Verified 06/15/23 10:47 Consultations 06/14/23 17:39 ED Decision to Admit Stat Ordered Studies 06/14/23 14:23 CT chest diagnostic wo con Stat CT thoracic spine wo con Stat Hospital Course (1) Right rib fracture: (2) COVID-19: (3) Accidental fall: (4) Hypomagnesemia: (5) Esophageal reflux: (6) Dyslipidemia: Plan 88yo female with multiple medical problems admitted s/p mechanical fall found to have R rib fracture #R Rib Fx -Pain control oxycodone 5mg q6 PRN -Hemodynamically stable and stable on RA -Incentive spirometry -PRN narcan for oversedation -PT/OT recommend inpatient rehab -SQ lovenox for DVT PPX #Accidental fall: -Fell as her blanket was wrapped around her legs while trying to stand -Rest of care per right rib fracture plan #Constipation - likely opiate induced vs reduced mobility - Miralax - Goal of 1 BM/day # Hypokalemia -Resolved -Replete as indicated # Hypomagnesemia: -Resolved -Replete as indicated # Hypertension: -Continue Chlorthalidone # Dyslipidemia: -Continue statin # Esophageal reflux: -Continue PPI FENGI: Heart healthy Code status: full DVT prophylaxis: lovenox Isolation: COVID Disposition: obs Total Time Total Time Spent Total Time Spent (In Minutes): I spent 20 minutes seeing the patient, reviewing EMR, and documentation Discharge Plan Discharge Items Patient Disposition: Transfer Inpatient Rehab Fac Reason For Visit: FALL, RIGHT RIB FRACTURE, HYPOMAGNESEMIA Discharge Diagnosis: Rib Fracture Activity: Per Instructions section Activity Comment: Resume activity as tolerated and as discussed with physical therapy Non-emergency contact: Primary Care Provider Call non-emergency contact if: you have any medication questions, your symptoms worsen, your pain is worsening and you have a fever Follow-up/Referrals: Nhan Sam MD [Primary Care Provider] - Diet: Heart Healthy Addtl Attending Provider Instructions: You were admitted to the hospital for rib fracture. You were treated with pain medication and rest. You were seen by physical therapy who thought you may benefit from inpatient rehab before returning home. A discharge summary will be sent to your primary care physician to ensure continuity of care. Please bring this discharge summary with you to your next office appointment so that your provider can review it at that time. Follow-up appointments: Make a follow-up appointment with your PCP within the next week. It is very important that you follow up with them shortly after discharge from the hospital. We have requested a follow-up appointment with your primary care physician within one week of discharge. Please call their office if you do not hear from them. Keep all your follow-up appointments as already scheduled. If you cannot make an appointment, notify your provider. Medications: Your medication list has been reviewed and reconciled upon discharge to ensure accuracy and continuity of care. An updated list of all your medications is included with your hospital discharge paperwork. Please review this list closely, and make note of any changes. We sent a new medication called med name to your pharmacy. Take oxycodone (5mg) one tablet every 4 hours as needed. If you have any issues filling these prescriptions, please call [phone] and ask to leave a message for Dr. Dale Piedra. Take your medications as instructed; do not skip a dose of your medicines. Make sure all of your doctors know every medicine you are taking (including [id number] medicines, vitamins, and supplements). Call your primary care provider before taking any new medicines (including edtm-pis-ukjbnsd medicines, vitamins, and supplements), because some of these may interact with your current medications, or may make your symptoms worse. Tell your primary care provider if you cannot afford your medications. CONTACT YOUR PRIMARY CARE PROVIDER if you experience any of the following: Increased pain in your ribs Difficulty breathing Difficulty following your treatment plan, or difficulty taking medications CALL 911 OR GO TO THE EMERGENCY DEPARTMENT if you experience any of the following: Sudden, severe abdominal pain or nausea/vomiting Severe chest pain, or chest pain that radiates (moves) to your jaw or arm Sudden, severe shortness of breath or difficulty breathing Thank you for allowing us to participate in your care. Pending Studies at Discharge: No Stand-Alone Forms: My [facility] Skilled Items Patient informed of condition?: Yes DNR: No Discharge Level of Care: Acute rehab Communicable Disease: No Discharge Prognosis: Stable Lines: None Urinary Catheter: No Medications and DC Order Prescriptions: Continued chlorthalidone 25 mg tablet 25 mg PO QAM Qty: 90 3RF Centrum Minis Women 50 Plus 4 mg iron-200 mcg-25 mcg tablet 1 tab PO UD aspirin 81 mg Tablet,Chewable 81 mg PO QAM omeprazole 40 mg capsule,delayed release(DR/EC) 40 mg PO DAILY PRN (Reason: Acid Reflux) Rx Instructions: TAKE 1 CAPSULE DAILY NEEDED FOR REFLUX rosuvastatin [Crestor] 5 mg tablet 5 mg PO QAM methocarbamol 500 mg tablet 500 mg PO Q8H Qty: 14 0RF Discharge Orders: Discharge Order (Routine); Ordered 06/19/23 Ordered By: Dale Piedra Admission Data Admit Date/Time: 06/15/23 11:49 Attending Provider: Mario Renee Admit Provider: Karely Addison Primary Care Provider: Nhan Sam. Other Providers: Karely Addison; [facility] Other Interventions: Discharge Summary Assessment (RN) Last Done: 06/19/23 11:51 Supervising Physician Co-Signing Physician Notes I also saw the patient confirmed rolon portions of the clinical history and physical examination. Agree with the impression and plan as noted in the resident discharge summary. Upon my midmorning exam, the patient was packing her belongings awaiting the arrival of her ride to [facility]. She notes some improvement in the rib pain; we discussed natural course. She has no new complaints, questions or concerns. Plan is for inpatient [facility] Follow-up with PCP thereafter
== END 2023-06-19 12:15 | DRG 544 ==
LOC: EDINP 14:06 → ED 14:06 → SUATTDRO 20:51 → 2N 21:53 → SUATTDRO 06-15 11:49 → 3N 06-15 19:42
DX: E87.6 Hypokalemia; Y99.8 Other external cause status; K59.03 Drug induced constipation; M80.0AXA Age-related osteoporosis with current pathological fracture, other site, initial encounter for fracture; Z86.16 Personal history of COVID-19; I25.10 Atherosclerotic heart disease of native coronary artery without angina pectoris; Y92.009 Unspecified place in unspecified non-institutional (private) residence as the place of occurrence of the external cause; Z79.82 Long term (current) use of aspirin; R42 Dizziness and giddiness; E78.5 Hyperlipidemia, unspecified; R26.81 Unsteadiness on feet; T40.605A Adverse effect of unspecified narcotics, initial encounter; Z91.138 Patient's unintentional underdosing of medication regimen for other reason; W18.39XA Other fall on same level, initial encounter; M35.3 Polymyalgia rheumatica; Z82.49 Family history of ischemic heart disease and other diseases of the circulatory system; K59.09 Other constipation; Z91.048 Other nonmedicinal substance allergy status; T50.2X6A Underdosing of carbonic-anhydrase inhibitors, benzothiadiazides and other diuretics, initial encounter; E83.42 Hypomagnesemia; K21.9 Gastro-esophageal reflux disease without esophagitis; Z95.2 Presence of prosthetic heart valve; I10 Essential (primary) hypertension; Z79.899 Other long term (current) drug therapy